=== PATIENT | male | born 1935 | race Caucasian/White ===

== ENCOUNTER → 2017-03-01 | Outpatient (CLI) | payer OTHER, MEDICARE | LOC: FIMAGING 08:51 | PROVIDERS: ATTEND Internal Medicine Cardiovascular Disease | DX: R06.02 Shortness of breath (principal); I47.1 Supraventricular tachycardia; Z79.899 Other long term (current) drug therapy; Z86.11 Personal history of tuberculosis ==

== ENCOUNTER → 2017-03-18 | Outpatient (CLI) | payer OTHER, MEDICARE | LOC: BHFA 09:15 | PROVIDERS: ATTEND Internal Medicine Cardiovascular Disease | DX: I42.9 Cardiomyopathy, unspecified (principal) ==

== ENCOUNTER → 2017-03-28 | Outpatient (CLI) | payer OTHER, MEDICARE ==
[~2017-03-28] MED LIST: IOPAMIDOL (ISOVUE 370) 100 ML BTL IV ONE
== END ==
LOC: FIMAGING 08:48
PROVIDERS: ATTEND Internal Medicine Cardiovascular Disease
DX: I71.2 Thoracic aortic aneurysm, without rupture (principal); R91.8 Other nonspecific abnormal finding of lung field; I77.4 Celiac artery compression syndrome; K80.20 Calculus of gallbladder without cholecystitis without obstruction; I48.92 Unspecified atrial flutter
CPT/HCPCS: 71275; Q9967

== ENCOUNTER 2017-04-20 14:55 | Inpatient (IN) | payer OTHER, MEDICARE ==
--- NOTE | 2017-04-20 15:13 | EDPHY ---
H & P Stated Complaint: Slurred speech HPI/ROS: CHIEF COMPLAINT: Fatigue, dizziness. HISTORY OF PRESENT ILLNESS: The patient is a 81-year-old male with a history of atrial fibrillation, CABG, pacemaker, and hypertension who presents with fatigue and dizziness. His reports that at 0400 this morning she noticed he was "shaking uncontrollably" and was visibly tachypneic. He slept much later than usual and woke up fatigued and dizzy and has been unable to walk without assistance because he feels off balance. No headache, no vertigo. His feels that his speech was slurred earlier. His symptoms are worsened with exertion and alleviated when lying flat. He is oriented to name, year, and place. He denies vomiting, diarrhea, abdominal pain, or change in his chronic back pain, recent sickness, or other complaints. His pacemaker was last checked 2-3 months ago. He is anticoagulated on Eliquis. REVIEW OF SYSTEMS: A ten point review of systems was performed and is negative with the exception of the items mentioned in the HPI. Source: Patient, Family Exam Limitations: No limitations - Personal History Tetanus Vaccine Date: 2003 - Medical/Surgical History Hx Asthma: No Hx Chronic Respiratory Disease: No Hx Diabetes: No Hx Cardiac Disease: Yes Hx Renal Disease: No Hx Cirrhosis: No Hx Alcoholism: No Hx HIV/AIDS: No Hx Splenectomy or Spleen Trauma: No Other PMH: 1. CABG. 2. AMI. 3. Pacemaker. 4. HTN. 5. CHRON HIP AND BACKPAIN. 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 2. Never smoked. 3. Drinks one glass of wine per week. 4. Lives with his . - Physical Exam Exam: General Appearance: Alert. Vital signs reviewed. Blood pressure 93/52 at triage. Eyes: Pupils equal and round, no conjunctival injection, no discharge. Anicteric. ENT, Mouth: Mucous membranes are dry, no oropharyngeal erythema or edema. Bilateral hearing aids in place. Neck: No lymphadenopathy, supple. Respiratory: Lungs are clear to auscultation; no wheezes, rales, or rhonchi. Cardiovascular: Regular rate and rhythm; no murmur, rub, or gallop. Gastrointestinal: Abdomen is soft and nontender, no masses or organomegaly, bowel sounds normal. Ventral hernia, no incarceration. Skin: Warm and dry, no rashes on exposed skin, normal color. Back: Nontender to palpation over the thoracolumbar spine. No CVAT. Extremities: No lower extremity edema, no calf tenderness or swelling. Neurological: Alert and oriented. Moving all four extremities easily and equally. Cranial nerves II through XII are examined and are intact with exception of mild tongue devaition to right (visual acuity not tested). Strength is 5 over 5 bilaterally with testing of all major motor groups. Sensation is intact to light touch over all 4 extremities. Deep tendon reflexes are 2+ in the biceps and knees bilaterally. Gait is normal. [id number] is performed accurately. Mild dysmetria with left heel to dawkins test. Right leg spasms when right leg held in the air. I do not appreciated dysarthria/slurred speech. Psychiatric: Normal affect. Constitutional: Initial Vital Signs Temperature (C) 36.7 C 04/20/17 15:00 Heart Rate 70 04/20/17 15:00 Respiratory Rate 18 04/20/17 15:00 Blood Pressure 93/52 L 04/20/17 15:00 O2 Sat (%) 91 L 04/20/17 15:00 O2 Delivery Mode Nasal Cannula O2 (L/minute) 1 Allergies/Adverse Reactions: No Known Allergies Allergy (Verified 05/23/15 12:12) Home Medications: Medication Instructions Recorded Atorvastatin Calcium [Lipitor 20 20 mg PO HS 02/01/12 mg (*)] Carvedilol [Coreg (*)] 25 mg PO BID 02/01/12 Multivitamins [Multivitamin (*)] 1 each PO HS 02/01/12 [place]-3 Fatty Acids [Fish Oil 1000 1,000 mg PO HS 02/01/12 mg (*)] Amiodarone HCl [Pacerone (*)] 100 mg PO HS 05/23/15 traMADol [Ultram 50 mg (*)] 50 mg PO BID PRN 05/23/15 Apixaban [Eliquis] 5 mg PO BID 04/20/17 Fiber [Fiber Diet] 2 each PO DAILY 04/20/17 Furosemide [Lasix 20 MG (*)] 20 mg PO SUTUTHSA 04/20/17 Gabapentin [Gabapentin] 300 mg PO HS 04/20/17 Lisinopril [Lisinopril] 10 mg PO HS 04/20/17 Spironolactone [Aldactone 25 MG 25 mg PO MWF 04/20/17 (*)] Niacin [Slo-Niacin] 250 mg PO DAILY 04/22/17 Medical Decision Making - Diagnostics EKG Interpretation: 12-LEAD EKG: Please see the full report in [facility]. My interpretation: A- V dual-paced rhythm. Imaging: Discussed imaging studies w/ call manager Radiologist ED Course/Re-evaluation: 81-year-old male presents with fatigue and dizziness that began early this morning. On exam he does have some difficulty with the heel to dawkins test with his left leg. He also has difficulty holding his right leg in the air. An IV was established and labs ordered. We will check a CT to rule out stroke or other intracranial process. Chest x-ray ordered to rule out pneumonia or other infectious process. I reviewed the patient's laboratory studies. Creatinine is 2.2 and BUN is 43, these levels represent decreased kidney function from previous. Troponin is elevated at 0.039. On re-exam his heel to dawkins dysmetria is improved. 1635: Head CT results conveyed to me by staff radiologist as no acute changes from previous. Stroke seems less likely, TIA remains a possible explanation. If concern for stroke remains he will need an MRI. He describes feeling off balance, not currently present, raising the possibility of posterior fossa event. I do not think that the shaking that is described was a seizure, but this is also in the differential. He is not experiencing vertigo. CXR also without acute changes--no infiltrate suggestive of pneumonia. He is not febrile or tachypneic and I doubt pneumonia. He has relative hypotension, but I have not found a source of infection (no urine obtained yet). Abdomen soft and nontender on exam. His 's description of last night's shaking event sounds like rigors. EKG shows paced rhythm. He is not reporting chest pain. Cardiac etiology still a possibility, but would not explain rigors. 1636: Reassessed patient. Discussed results of CT scan. Recommend admission for further evaluation and work-up. 1731: Consulted with Dr. Carrillo, hospitalist. She accepts admission. - Data Points Laboratory Results: Laboratory Results 04/20/17 15:22 04/20/17 15:22 Microbiology Results: MICROBIOLOGY 04/20/17 17:51 Blood Blood Culture - Preliminary Escherichia Coli 04/20/17 17:51 Blood Blood Panel (PCR) - Final Escherichia Coli 04/20/17 18:00 Blood Blood Culture - Preliminary Escherichia Coli Medications Given: Discontinued Medications Apixaban (Eliquis) 5 mg PO BID [facility] Stop: 10/17/17 21:44 Last Admin: 04/20/17 23:32 Dose: Not Given Sodium Chloride (Ns) 1,000 mls @ 0 mls/hr IV ONCE ONE PRN Reason: Wide Open Stop: 04/20/17 16:06 Last Admin: 04/20/17 16:09 Dose: 1,000 mls Niacin (Niacin) 250 mg PO DAILY MIGUEL Stop: 10/18/17 08:59 Last Admin: 04/22/17 09:30 Dose: 250 mg Departure - Departure Disposition: [facility] Inpatient Acute Clinical Impression: Weakness, Dizziness, Rigor Condition: Fair Report Scribed for: Zenaida Ontiveros Report Scribed by: Popeye Mancuso Date of Report: 04/20/17 Time of Report: 15:15 Physician Review and Approval Statement: 04/20/17 15:13 Portions of this note were transcribed by the medical nurse. I, Dr. Zenaida Ontiveros, personally performed the history, physical exam, and medical decision- making; and confirmed the accuracy of the information in the transcribed note.
--- NOTE | 2017-04-20 15:19 | CPEKG ---
Heart Rate: 70 RR Interval: 857 P-R Interval: 288 QRSD Interval: 170 QT Interval: 424 QTC Interval: 458 P [place]: 0 QRS [place]: -84 T Wave [place]: 109 EKG Severity - ABNORMAL ECG - EKG Impression: A-V DUAL-PACED COMPLEXES W/ SOME INHIBITION Electronically Signed By: Zenaida Ontiveros 21-Apr-2017 00:07:42
[2017-04-20 15:48] LABS: ADD MORPH? NO; ADD SCAN? YES; ATYPICAL LYMPHOCYTE FLAG 0 (0-99); FRAGMENT RBC FLAG 0 (0-99); HEMATOCRIT 38.4 % (40.0-51.0); HEMOGLOBIN 12.8 g/dL (13.7-17.5); LIPEMIA HEMOLYSIS FLAG 80 (0-99); MEAN CELL HEMOGLOBIN 32.2 pg (27.9-34.1); MEAN CELL HEMOGLOBIN CONCENTR. 33.3 g/dL (32.4-36.7); MEAN CELL VOLUME 96.5 fL (81.5-99.8); MEAN PLATELET VOLUME 9.2 fL (8.7-11.7); PLATELET CLUMPS FLAG 0 (0-99); PLATELET COUNT 156 10^3/uL (150-400); RED BLOOD CELL COUNT 3.98 10^6/uL (4.40-6.38); RED CELL DISTRIBUTION WIDTH 13.6 % (11.5-15.2)
[2017-04-20 15:49] LABS: LEFT SHIFT FLG 300 (0-99)
[2017-04-20 15:54] LABS: ANION GAP 14 mEq/L (8-16); CALCIUM 9.1 mg/dL (8.5-10.4); CARBON DIOXIDE 17 mEq/l (22-31); CHLORIDE 108 mEq/L (97-110); CREATININE 2.2 mg/dL (0.7-1.3); GLOMERULAR FILTRATION RATE 29; GLUCOSE 207 mg/dL (70-100); INR 1.79 (0.83-1.16); POTASSIUM 4.6 mEq/L (3.5-5.2); PROTIME(PATIENT) 20.9 SEC (12.0-15.0); SODIUM 139 mEq/L (134-144)
[2017-04-20 15:55] LABS: APTT 31.6 SEC (23.0-38.0)
[2017-04-20 16:05] LABS: TROPONIN I 0.039 ng/mL (0-0.034)
[2017-04-20] MEDS ORDERED: NS 1,000 ML IV ONE (16:05)
[2017-04-20 16:13] LABS: ADD DIFF? YES; SCAN POSITIVE
[2017-04-20 16:17] LABS: PLATELET ESTIMATE DECREASED (ADEQ)
[2017-04-20 19:16] LABS: COLOR AMBER; LEUKOCYTE ESTERASE,URINE NEGATIVE (NEGATIVE); NITRITE,URINE NEGATIVE (NEGATIVE)
[2017-04-20] MEDS ORDERED: ONDANSETRON 4 MG/2 ML VIAL IVP PRN (21:31)
[2017-04-20] MEDS ORDERED: ONDANSETRON DISINTEGRATING 4 MG TAB PO PRN (21:31)
[2017-04-20] MEDS ORDERED: traMADol 50 MG TAB PO PRN (21:34)
[2017-04-20] MEDS ORDERED: APIXABAN 5 MG TAB PO SCH (21:45)
[2017-04-20 22:02] LABS: ALBUMIN 3.3 g/dL (3.5-5.0); BILIRUBIN,TOTAL 2.8 mg/dL (0.1-1.4); BILIRUBIN-CONJUGATED 1.9 mg/dL (0.0-0.5); BILIRUBIN-UNCONJUGATED 0.9 mg/dL (0.0-1.1); TOTAL PROTEIN 5.9 g/dL (6.3-8.2)
[2017-04-20 22:14] LABS: TROPONIN I 0.043 ng/mL (0-0.034)
[2017-04-20] MEDS: NS 1,000 ML IV SCH (22:20)
[2017-04-20 22:26] LABS: PROCALCITONIN 14.83 ng/mL (0.02-0.10)
[2017-04-20] MEDS: ERTAPENEM 1 GM in NS 100 ML IV SCH (23:05)
--- NOTE | 2017-04-20 23:13 | GHP ---
[f rep st] HISTORY AND PHYSICAL DATE OF ADMISSION: 04/20/2017 CHIEF COMPLAINT: Rigors and fatigue. HISTORY OF PRESENT ILLNESS: The patient is a 81-year-old male with a history of coronary artery disease with prior CABG, atrial fibrillation, the presence of a pacemaker, and hypertension who presents to the emergency department reporting rigors and fatigue. He states he had some mild right upper quadrant discomfort last night. He took some Pepto-Bismol and was able to fall asleep. He then awoke with shaking rigors. His said she had to hug him in bed for nearly half an hour trying to warm him before his shaking chills stopped. He then fell asleep but she noted shallow breathing. He slept all morning today, and she had to wake him up at 1:30 in the afternoon. When he got up, he felt some dizziness or disequilibrium symptoms. He denies any known fevers. He has had no nausea, vomiting, or diarrhea. He denies any chest pain or shortness of breath. He does give a history of coughing in the setting of choking on liquids. He apparently had a significant aspiration episode last night where vomited some gastric contents, according to his daughter. He does endorse trouble swallowing recently. Aside from his episodes of swallowing difficulty and choking events. He denies ongoing cough or respiratory symptoms. With respect to his atrial fibrillation, he is anticoagulated on Eliquis. He has a pacemaker. Apparently during a recent interrogation, there were some concerning findings, and ablation was recommended. This is planned for next month. He has denied any heart palpitations or syncopal events. In the emergency department, he was given 1 L of normal saline, and due to his unexplained symptoms, he is admitted to the hospital for further evaluation. PAST MEDICAL HISTORY: 1. Coronary artery disease, status post CABG. 2. Atrial fibrillation, status post cardioversion July 2016. 3. Presence of a pacemaker with battery replacement July 2016. 4. Hypertension. 5. Chronic systolic heart failure with an ejection fraction of 35-40% on echocardiogram from July 2016. 6. 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 7. History of TIA. 8. Chronic hip and back pain. 9. Chronic continuous opioid dependence. PAST SURGICAL HISTORY: 1. Three-vessel CABG. 2. Pacemaker with AICD Biotronik. 3. Partial lung resection in 1957. FAMILY HISTORY: Positive for alcoholism in his father. SOCIAL HISTORY: Patient is a lifetime nonsmoker. He has had secondhand smoke exposure. He reports occasional alcohol use. He denies drug use. He is and lives independently with his . MEDICATIONS: Please see [facility] for completed outpatient medication list. ALLERGIES: No known drug allergies. REVIEW OF SYSTEMS: A 10-point review of systems was performed, and is negative except as per History of Present Illness. OBJECTIVE: VITAL SIGNS: Temperature is 36.7, blood pressure 98/65, heart rate 70 respiratory rate 20. He is 97% on 1 L. GENERAL: The patient is awake, alert, oriented, in no acute distress. HEENT: Head is atraumatic, normocephalic. Pupils equal, round, react to light. Extraocular is intact. Oropharynx is clear. Mucous membranes are moist. NECK: Supple. There is no JVD. HEART: Regular rate and rhythm without murmur. LUNGS: Faint crackles at the left base. ABDOMEN: Soft, protuberant. There is some mild right upper quadrant tenderness to palpation without rebound, rigidity, or guarding. Normoactive bowel sounds are present. EXTREMITIES: Without cyanosis, clubbing , or edema. Warm, well perfused. 2+ peripheral pulses. NEUROLOGIC: Grossly nonfocal. He moves all 4 extremities. He is mentating clearly. LABORATORY DATA: CBC reveals a white blood cell count of 15,000 with 69% segmented neutrophils, 19% bands. Basic metabolic panel was remarkable for CO2 of 17, BUN 43, creatinine 1.2. Blood glucose is 207. Troponin is mildly elevated at 0.039. Urinalysis is negative. LFTs are pending. Lactic acid is pending. Procalcitonin is pending. Head CT is negative for an acute hemorrhage, mass effect, or infarct. There is mild microvascular ischemic disease and mild to moderate age related atrophy. Chest x-ray performed in the emergency department shows no acute or new abnormality within the chest. There is stable mild to moderate cardiomegaly as well as some scarring in the right upper lobe and left lung base with a subtle nodule in the left base which was identified as a left lung mass by CT in March of 2017. There is no obvious consolidation or effusion. Pacemaker unit and leads are in stable position. EKG shows AV paced rhythm with some inhibition. ASSESSMENT AND PLAN: The patient is a 81-year-old male with multiple medical problems who presents to the emergency department with shaking rigors and fatigue. 1. Suspected cholangitis. He presents with rigors and leukocytosis with bandemia. A lactate and a procalcitonin are sent along with LFTs. I reviewed his chest CT from March of 2017, which noted mild common bile duct dilatation measuring 12 mm which was new from the previous study. If his LFTs are elevated will proceed with a right upper quadrant ultrasound to further assess for CBD dilatation. Blood cultures are sent. Will start Ertapenem. He received 1 L normal saline bolus in the ED. He is hemodynamically stable though his blood pressures are a bit on the low side. Will repeat a fluid bolus now. He did note taking an extra dose of his Coreg this afternoon. Will hold his other antihypertensive agents for now in the event he is developing sepsis. Case discussed with GI, who will see in am. Hold Eliquis in the event he requires ERCP. NPO after midnight. 2. Left lung mass. This appears suspicious by recent CT scan. PET-CT is recommended. Pt believes this is chronic and related to his prior TB infection. We may want to pursue this during this hospitalization, though will defer at this time and focus on stabilization of his infectious process first, which I do not think is related to this finding. 3. Coronary artery disease with a history of prior coronary artery bypass graft. He has been chest pain free. Will continue his outpatient medications with the exception of his Coreg which is held due to mild hypotension. 4. Atrial fibrillation. He is anticoagulated on Eliquis. Held for possible procedure as above. He is currently rate controlled. He apparently has an ablation planned. A cardiology consult is requested. He should likely have his pacemaker interrogated tomorrow to determine if he has any arrhythmias contributing to his fatigue and disequilibrium symptoms. 5. Hypotension. As above, his antihypertensives were held due to mild hypotension with systolic pressure in the 90s. 6. Acute kidney injury. It looks like he has chronic kidney disease with a baseline creatinine of around 1.3. I am holding his spironolactone and lisinopril for now. I am going to gently hydrate him overnight and recheck his labs in the morning. 7. Chronic systolic heart failure. He appears a bit on the dry side. Hold Lasix and gently hydrate overnight. Will repeat an echocardiogram. 8. Elevated troponin. This is very mild. Could be strain in the setting of infection. He is chest pain-free. Will go ahead and trend his troponins, and as above, cardiology consult is requested for the morning. 9. Dysphagia. Some concern for aspiration by history. No e/o infiltrate on imaging. Speech / swallow eval planned. 10. Deep venous thrombosis prophylaxis. He is anticoagulated on Eliquis, though this is held. SCD's ordered. 11. Code Status: Patient is full code. DISPOSITION: Patient admitted to inpatient status. Will likely require greater than 48 hours hospitalization for ongoing evaluation of a possible source of infection and further management of his cardiac issues. /[id number]/MODL MTDD
[2017-04-20] MEDS ORDERED: ATORVASTATIN CALCIUM 20 MG TAB PO SCH (23:30)
[2017-04-20] MEDS: OMEGA-3 FATTY ACIDS 1,000 MG CAP PO SCH (23:43)
[2017-04-20] MEDS: AMIODARONE HCL 200 MG TAB PO SCH (23:43)
[2017-04-20] MEDS: GABAPENTIN 300 MG CAP PO SCH (23:43)
[2017-04-21 04:46] LABS: % IMMATURE GRANULYOCYTES 0.9 % (0.0-1.1); ABSOLUTE IMMATURE GRANULOCYTES 0.11 10^3/uL (0.00-0.10); ADD DIFF? NO; ADD MORPH? NO; ADD SCAN? NO; ATYPICAL LYMPHOCYTE FLAG 0 (0-99); FRAGMENT RBC FLAG 0 (0-99); HEMATOCRIT 35.2 % (40.0-51.0); LEFT SHIFT FLG 70 (0-99); LIPEMIA HEMOLYSIS FLAG 90 (0-99); MEAN CELL HEMOGLOBIN 32.5 pg (27.9-34.1); MEAN CELL HEMOGLOBIN CONCENTR. 34.1 g/dL (32.4-36.7); MEAN CELL VOLUME 95.4 fL (81.5-99.8); MEAN PLATELET VOLUME 9.4 fL (8.7-11.7); PLATELET CLUMPS FLAG 10 (0-99); PLATELET COUNT 140 10^3/uL (150-400); RED BLOOD CELL COUNT 3.69 10^6/uL (4.40-6.38); RED CELL DISTRIBUTION WIDTH 13.7 % (11.5-15.2)
[2017-04-21 04:59] LABS: ALANINE AMINOTRANSFERASE 405 IU/L (21-72); ALBUMIN 3.1 g/dL (3.5-5.0); ALKALINE PHOSPHATASE 184 IU/L (38-126); ANION GAP 11 mEq/L (8-16); ASPARTATE AMINOTRANSFERASE 283 IU/L (17-59); BILIRUBIN,TOTAL 2.4 mg/dL (0.1-1.4); CALCIUM 8.5 mg/dL (8.5-10.4); CARBON DIOXIDE 17 mEq/l (22-31); CHLORIDE 111 mEq/L (97-110); CREATININE 1.9 mg/dL (0.7-1.3); GLOMERULAR FILTRATION RATE 34; GLUCOSE 103 mg/dL (70-100); POTASSIUM 4.2 mEq/L (3.5-5.2); SODIUM 139 mEq/L (134-144); TOTAL PROTEIN 5.5 g/dL (6.3-8.2)
[2017-04-21 05:09] LABS: TROPONIN I 0.039 ng/mL (0-0.034)
[2017-04-21 05:22] LABS: BILIRUBIN-CONJUGATED 1.7 mg/dL (0.0-0.5); BILIRUBIN-UNCONJUGATED 0.7 mg/dL (0.0-1.1)
--- NOTE | 2017-04-21 08:47 | PDCARPN ---
Cardiology Progress Note Chief Complaint: Weakness and fatigue. Chills and rigors Assessment/Plan: Assessment: Patient is a 81 y/o male, well known to [facility] (Dr. Tanvir Hernandez and Dr. Phani Russell), who presented yesterday with weakness and fatigue. 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 Work up suggestive of cholangitis, and GI has been consulted. Pending need for surgical intervention today. WBC with mild elevation. LFTs with moderate elevation. At present, the patient is feeling well. No active cardiovascular complaints of chest pains or pressure, no PND or orthopnea. No lower extremity edema. No dyspnea. No history of ICD shocks. Recent outpatient interrogation with ongoing atrial flutter (hence pending ablation). Plan: (1) Given the patient is paced, we will reprogram the device to turn off defibrillation, but maintain pacing - Pacer rep to reprogram device in am - do not use magnet in the patient given the pacing requirements noted (2) Continue limited hold on the Eliquis to minimize bleeding risk for pending surgical intervention - resume this therapy when acceptable to GI (3) Would continue therapy on Amiodarone to maintain some degree of heart rate reduction (4) Statins should be held with the elevation to LFTs noted (5) Patient is a moderate to high risk for the surgery given the past cardiovascular history. At present, there is good cardiovascular control of past medical/cardiovascular issues, and this leans the risk toward "moderate" rather than "high". (6) We will continue to follow this patient while in house Subjective: No cardiovascular complaints Reviewed/Discussed With: family, hospitalist, multidisciplinary team Objective: Vital Signs (8 Hrs) Temp Pulse Resp BP Pulse Ox 04/21/17 04:00 36.4 C 70 15 95/55 L 92 Intake/Output (24 Hrs) 04/20/17 04/21/17 04/22/17 05:59 05:59 05:59 Intake Total 250 Output Total 250 Balance 0 Intake: Oral (ml) 250 Output: Urine (ml) 250 Urinal 250 Other: Weight 90.2 kg Number of Voids Toilet 1 Result Diagrams: 04/21/17 04:21 04/21/17 04:21 Cardiac Labs: Cardiac Lab Results (72 Hrs) 04/21/17 04/20/17 04:21 21:40 Troponin I 0.039 H 0.043 H Telemetry: AV pacing - Physical Exam Constitutional: WDWN, healthy appearing Eyes: PERRL, EOMI Ears, Nose, Mouth, Throat: moist mucous membranes Cardiovascular: regular rate and rhythm, no rubs, no gallops, systolic murmur ( II/) Peripheral Pulses: 2+: dorsalis-pedis (R), dorsalis-pedis (L) Respiratory: clear to auscultate bilat, no crackles, no wheezes Gastrointestinal: no tenderness Skin: no rashes, no edema Musculoskeletal: no muscular tenderness Neurologic: AAOx3, CN II-XII grossly intact Psychiatric: cooperative, interactive, following commands ICD10 Worksheet Patient Problems: Problems Problem Status Onset Dizziness Acute Weakness Acute Acute systolic congestive heart failure Acute Atrial tachycardia Acute CAD (coronary artery disease) Acute
[2017-04-21] MEDS ORDERED: APIXABAN 5 MG TAB PO SCH (09:00)
[2017-04-21] MEDS: ERTAPENEM 1 GM in NS 100 ML IV SCH (09:27)
[2017-04-21] MEDS: NIACIN 500 MG TAB PO SCH (09:27)
[2017-04-21] MEDS ORDERED: GLUCAGON,HUMAN RECOMBINANT 1 MG VIAL ONE (09:51)
[2017-04-21] MEDS ORDERED: IOTHALAMATE MEG (CONRAY) 50 ML VIAL IV ONE (09:52)
--- NOTE | 2017-04-21 10:22 | PDANEPAE ---
ANE History of Present Illness 81 yo with RUQ pain ANE Past Medical History - Cardiovascular History Hx Hypertension: Yes Hx Arrhythmias: Yes Hx Coronary Artery / Peripheral Vascular Disease: Yes Cardiovascular History Comment: Previous CABG, EF 35%, Pacer with ICD, ICD off - Pulmonary History Hx Oxygen in Use at Home: No Hx Sleep Apnea: Yes Sleep Apnea Screening Result - Last Documented: Positive - Endocrine History Hx Diabetes: No - Neurological & Psychiatric Hx Hx Neurological and Psychiatric Disorders: Yes Neurological / Psychiatric History Comment: TIAs - Chronic Pain History Chronic Pain: Yes (Back and hip) ANE Review of Systems - Pacemaker Pacemaker Type: Permanent Pacer/Defib Date Pacemaker Last Checked: 05/23/15 ANE Patient History - Allergies Allergies/Adverse Reactions: No Known Allergies Allergy (Verified 05/23/15 12:12) - Home Medications Home medications: home medication list seen and reviewed Home Medications: Atorvastatin Calcium [Lipitor 20 mg (*)] 20 mg PO HS 02/01/12 [Last Taken 22:00] Carvedilol [Coreg (*)] 25 mg PO BID 02/01/12 [Last Taken 05/23/15 09:00] Multivitamins [Multivitamin (*)] 1 each PO HS 02/01/12 [Last Taken 05/22/15 22: 00] Niacin [Niacin 500 mg (*)] 250 mg PO DAILY 02/01/12 [Last Taken 05/22/15 22:00] [place]-3 Fatty Acids [Fish Oil 1000 mg (*)] 1,000 mg PO HS 02/01/12 [Last Taken 05/22/15 22:00] Amiodarone HCl [Pacerone (*)] 100 mg PO HS 05/23/15 [Last Taken 05/22/15 22:00] traMADol [Ultram 50 mg (*)] 50 mg PO BID PRN 05/23/15 [Last Taken 05/22/15] Apixaban [Eliquis] 5 mg PO BID 04/20/17 [Last Taken Unknown] Fiber [Fiber Diet] 2 each PO DAILY 04/20/17 [Last Taken Unknown] Furosemide [Lasix 20 MG (*)] 20 mg PO SUTUTHSA 04/20/17 [Last Taken Unknown] Gabapentin [Gabapentin] 300 mg PO HS 04/20/17 [Last Taken Unknown] Lisinopril [Lisinopril] 10 mg PO HS 04/20/17 [Last Taken Unknown] Spironolactone [Aldactone 25 MG (*)] 25 mg PO MWF 04/20/17 [Last Taken Unknown] - NPO status NPO Since - Liquids (Date): 04/21/17 NPO Since - Liquids (Time): 00:00 NPO Since - Solids (Date): 04/21/17 NPO Since - Solids (Time): 00:00 - Anes Hx Anes Hx: no prior problems - Smoking Hx Smoking Status: Never smoked ANE Labs/Vital Signs - Labs Result Diagrams: 04/21/17 04:21 04/21/17 04:21 - Vital Signs Blood Pressure: 107/63 Heart Rate: 70 Respiratory Rate: 18 O2 Sat (%): 93 Height: 177.8 cm Weight: 90.2 kg ANE Physical Exam - Airway Neck exam: FROM Mallampati Score: Class 2 - Pulmonary Pulmonary: no respiratory distress, clear to auscultation - ASA Status ASA Status: III ANE Anesthesia Plan Anesthesia Plan: general endotracheal anesthesia
[2017-04-21] MEDS ORDERED: fentaNYL 100 MCG/2 ML INJ ONE (10:33)
[2017-04-21] MEDS ORDERED: PROPOFOL 200 MG/20 ML VIAL ONE (10:33)
[2017-04-21] MEDS ORDERED: ROCURONIUM 50 MG/5 ML VIAL ONE (10:35)
[2017-04-21] MEDS ORDERED: PHENYLEPHRINE HCL 100 MCG/ML SYR ONE (10:46)
--- NOTE | 2017-04-21 11:14 | POSTOPPROG ---
Post Op Note Date of Operation: 04/21/17 Surgeon: Destin Grewal Anesthesiologist: Dr. Jarquin Anesthesia: GET(General Endotracheal) Pre-op Diagnosis: Ascending cholangitis Post-op Diagnosis: Choledocholithiasis Procedure: ERCP/shpinterotomy/stone extraction Inf/Abcess present in the surg proc area at time of surgery?: Yes Depth: Organ Space (Cholangitis) EBL: Minimal Complications: none
--- NOTE | 2017-04-21 11:15 | SOAPPROG ---
SOAP Progress Note Assessment/Plan: Assessment:Pt with signs and sx of ascending cholangitis, BC positive for E. coli. Will proceed to ERCP. Plan: 04/21/17 11:14 Objective: Vital Signs Temp Pulse Resp BP Pulse Ox 36.6 C 70 18 107/63 93 04/21/17 09:56 04/21/17 10:21 04/21/17 10:21 04/21/17 10:21 04/21/17 10:21 Laboratory Results 04/21/17 04:21 04/21/17 04:21 04/20/17 04/21/17 04/22/17 05:59 05:59 05:59 Intake Total 250 Output Total 250 250 Balance 0 -250 PT 20.9 SEC (12.0-15.0) H 04/20/17 15:22 INR 1.79 (0.83-1.16) H 04/20/17 15:22 ICD10 Worksheet Patient Problems: Problems Problem Status Onset Dizziness Acute Weakness Acute Acute systolic congestive heart failure Acute Atrial tachycardia Acute CAD (coronary artery disease) Acute
[2017-04-21] MEDS ORDERED: ONDANSETRON 4 MG/2 ML VIAL IVP PRN (11:31)
[2017-04-21] MEDS ORDERED: fentaNYL 100 MCG/2 ML INJ IVP PRN (11:31)
[2017-04-21] MEDS ORDERED: PROMETHAZINE HCL 25 MG/ML INJ IVP PRN (11:31)
[2017-04-21] MEDS ORDERED: NALOXONE HCL 0.4 MG/ML INJ IVP PRN (11:31)
--- NOTE | 2017-04-21 11:32 | POSTANESTH ---
Post Anesthetic Evaluation Cardiovascular Status: Normal, Stable Respiratory Status: Normal, Stable Level of Consciousness/Mental Status: Can Participate in Eval, Alert and Oriented Pain Control: Adequate, Prn Tx Ordered Nausea/Vomiting Control: Adequate, Prn Tx Ordered Complications Possibly Related to Anesthesia: None Noted
[2017-04-21] MEDS: NS 1,000 ML IV SCH (14:28)
--- NOTE | 2017-04-21 14:45 | GCON ---
[f rep st] CONSULTATION GASTROINTESTINAL CONSULTATION IMPRESSION: 1. Strongly suspect ascending cholangitis, given symptoms of right upper quadrant pain, shaking chi lls, elevated white count, elevated liver function tests, and imaging showing common bile duct. 2. Bacteremia with E coli, probably secondary to #1. RECOMMENDATIONS: Urgent ERCP is warranted. This will be set up as soon as we get cardiac clearance . HISTORY OF PRESENT ILLNESS: The patient is a 81-year-old male with significant cardiac history as n oted in the history and physical by the hospitalist. Patient has had some right upper quadrant pain and then woke with shaking rigors last night. Shallo w breathing. No fevers. Presented to the emergency room where he was noted to have leukocytosis an d elevated liver function tests. A CT scan performed last month for chest problems, revealed a mild ly dilated common duct at 12 mm, and gallstones in the gallbladder. Ultrasound last night confirmed the common bile duct dilation, but no obvious stones were noted. PAST MEDICAL HISTORY: 1. Significant for coronary artery disease. He has had a CABG. He also has implanted defibrillato r. 2. Atrial fibrillation. 3. Hypertension. 4. Congestive heart failure. The remainder of the peripheral history is as per the H and P. PHYSICAL EXAM: GENERAL: Reveals an obese male, in no acute distress. ABDOMEN: Soft and obese. There is tenderness in the right upper quadrant. No masses, rebound or guarding noted. IMAGING: As noted above. LABORATORIES: On admission white count 15.03, hemoglobin 12.8, platelets 156. INR 1.8. Total bili valdez 2.8, of which 1.9 is conjugated. AST 398, ALT 469, alk phos 192. In February of this year, total bili was 1.2, AST was 38, and ALT was 82. /[id number]/MODL
--- NOTE | 2017-04-21 15:02 | ECHO ---
[id number] + + [address] : : [place] [address] : : [phone] + + Adult Echocardiographic Report + --------+ :Name: GARRETT GRAVES JStudy Date: 04/21/2017 12:19 PM : : Hospital Admission Number: [id number] Locat ion: 220: :: 1935 Gender: Male Height: 70 in : :Age: 81 yrs Race: WH Weight: 194 l b : :Reason For Study: pre-syncope, fatigue : : BSA: 2.1 mete rs2 : :History: Pacer, systolic HF : + --------+ MMode/2D Measurements \T\ Calculations IVSd: 1.3 cm LVIDd: 5.9 cm FS: 10.9 % LVOT diam: 2.1 cm LVPWd: 1.1 cm LVIDs: 5.3 cm EDV(Teich): LVOT area: 175.8 ml 3.5 cm2 ESV(Teich): 134.7 ml EF(Teich): 23.4 % LVLd ap4: 7.5 cm SV(MOD-sp4): EDV(MOD-sp4): 18.0 ml 104.0 ml LVLs ap4: 8.1 cm ESV(MOD-sp4): 86.0 ml EF(MOD-sp4): 17.3 % Normal Measurement Values: + + :LVIDd (3.5-5.7cm) IVSd (0.6-1.1cm) LVPWd (0.6-1.1cm) Aortic Root (2.0-3.7cm)Left Atrium (1.5-4.0cm): :LV Vol(d) (76-115ml) LV Vol(s) (29-48ml) Ejec Fraction (50-65%)PV Buster (0.6- 1.2m/s) TV Buster (0.4-1.0m/s) : :MV E Buster (0.8-1.0m/s)MV A Buster (0.3-1.0m/s)LVOT Buster (0.7-1.2m/s) Asc Ao Buster ( 0.9-1.8m/s) : + + Doppler Measurements \T\ Calculations MV E max buster: Ao mean P.0 mmHg LV V1 max: SV(LVOT): 73.1 cm/sec Ao V2 mean: 58.7 cm/sec 35.5 ml MV dec time: 67.7 cm/sec LV V1 max P.22 sec Ao V2 VTI: 18.4 cm 1.4 mmHg JEM(I,D): 1.9 cm2 LV V1 mean P.67 mmHg LV V1 mean: 37.2 cm/sec LV V1 VTI: 10.0 cm PA V2 max: PI end-d buster: TR max buster: 65.8 cm/sec 75.3 cm/sec 214.5 cm/sec PA max P.7 mmHg TR max P.4 mmHg Left Ventricle The left ventricle is borderline dilated. There is mild concentric left ventricular hypertrophy. Ejection Fraction = 35%. Left ventricular systolic function is moderately reduced. Akinetic apex. Hypokinetic anterlateral. Septal motion is consistent with conduction abnormality. Right Ventricle The right ventricle is grossly normal size. There is a pacemaker lead in the right ventricle. The right ventricular systolic function is mildly reduced. Atria The left atrium is moderate to severely dilated. Right atrial size is normal. Mitral Valve The mitral valve is normal in structure and function. There is no mitral valve stenosis. There is mild to moderate mitral regurgitation. Tricuspid Valve Normal tricuspid valve. There is no tricuspid stenosis. There is moderate tricuspid regurgitation. Aortic Valve The aortic valve is not well visualized. Mild Aortic Valve Calcification. There is no aortic stenosis. Mild aortic regurgitation. Pulmonic Valve The pulmonic valve is not well visualized. trace to mild pulmonic valvular regurgitation. Great Vessels The aortic root is normal size. Pericardium/Pleural There is a fat pad seen. There is no pericardial effusion. Conclusion The left ventricle is borderline dilated. There is mild concentric left ventricular hypertrophy. Ejection Fraction = 35%. Left ventricular systolic function is moderately reduced. Akinetic apex. Hypokinetic anterlateral Septal motion is consistent with conduction abnormality. There is a pacemaker lead in the right ventricle. The right ventricular systolic function is mildly reduced. The left atrium is moderate to severely dilated. There is mild to moderate mitral regurgitation. There is moderate tricuspid regurgitation. The aortic valve is not well visualized. Mild Aortic Valve Calcification Mild aortic regurgitation. trace to mild pulmonic valvular regurgitation. Final Reading Physician: Damaris Hill signed on 04/21/2017 02:59 PM Ordering Physician: Luz Marina Carrillo Performed By: Ly Vernon
--- NOTE | 2017-04-21 15:09 | HOSPPROG ---
Hospitalist Progress Note Assessment/Plan: 81 yo M with hx of CAD, s/p CABG, a fib, presenting with rigors/generalized fatigue found to have elevated lfts and choledocholithiasis # choledocholithiasis/cholangitis: s/p ERCP, sphincterotomy and stone removal. Will continue to trend lfts. # sepsis: in setting of above as well as ecoli bacteremia, HD stable, started on ertapenem, holding antihypertensives given mild hypotension, lactate wnl # e coli bacteremia: in setting of above, sensitivities pending, will get repeat blood cultures in am and request ID to consult. Had echo on arrival that did not show any vegetation though does have valvular heart disease # acute encephalopathy: prior to admission with significant somnolence and difficulty maintaining alertness, head ct negative, largely resolved though still somnolent, due to sepsis # chronic systolic heart failure: EF of 35%, AICD in place, holding lasix, aldactone, carvedilol, lisinopril for now given mild hypotension and sepsis. Will resume when bp can tolerate # CAD: hx of CABG, no chest pain currently, meds as above being held, continue statin # a fib: continued on eliquis/amiodarone. ECG personally reviewed and notable for AV paced complexes # geraldine: on cpap chronically # IP status, high risk presenting issues requiring > 48 hours stay for eval/ mgmt of above Patient new to my care. Care plan reviewed with Dr. berry, Dr. Grewal, old records reviewed and summarized as above Subjective: no acute overnight events, feeling well today, went for ERCP and stone removal, a bit tired currently, tolerating food without issues, no fever or chills Objective: Vital Signs Temp Pulse Resp BP Pulse Ox 36.6 C 66 18 95/62 L 91 L 04/21/17 12:00 04/21/17 12:00 04/21/17 12:00 04/21/17 12:00 04/21/17 12:00 Laboratory Results 04/21/17 04:21 04/21/17 04:21 04/20/17 04/21/17 04/22/17 05:59 05:59 05:59 Intake Total 250 900 Output Total 250 400 Balance 0 500 PT 20.9 SEC (12.0-15.0) H 04/20/17 15:22 INR 1.79 (0.83-1.16) H 04/20/17 15:22 awake alert nad anicteric op clear rrr systolic murmur cta b soft nt nd no cce warm dry well perfused oriented appropriate ICD10 Worksheet Patient Problems: Problems Problem Status Onset CAD (coronary artery disease) Acute Acute systolic congestive heart failure Acute Atrial tachycardia Acute Weakness Acute Dizziness Acute
[2017-04-21] MEDS: AMIODARONE HCL 200 MG TAB PO SCH (19:34)
[2017-04-21] MEDS: GABAPENTIN 300 MG CAP PO SCH (19:34)
[2017-04-21] MEDS: OMEGA-3 FATTY ACIDS 1,000 MG CAP PO SCH (19:38)
[2017-04-21] MEDS ORDERED: GABAPENTIN 300 MG CAP PO SCH (21:00)
[2017-04-21] MEDS ORDERED: OMEGA-3 FATTY ACIDS 1,000 MG CAP PO SCH (21:00)
[2017-04-21] MEDS ORDERED: AMIODARONE HCL 200 MG TAB PO SCH (21:00)
[2017-04-21] MEDS ORDERED: ATORVASTATIN CALCIUM 20 MG TAB PO SCH (21:00)
--- NOTE | 2017-04-21 22:22 | GPN ---
[f rep st] PROCEDURE NOTE PROCEDURE: Endoscopic retrograde cholangiopancreatography with sphincterotomy and common bile duct clearance. INDICATION: The patient is a 81-year-old male admitted with signs and symptoms of ascending cholang itis and bacteremia with E coli. ERCP is being performed urgently to evaluate and treat. DESCRIPTION OF PROCEDURE: After cardiac clearance was obtained, the patient was brought to the endo scopy suite. He was intubated and placed in the swimmer's position. His initial ASA class was 3E. Video duodenoscope was introduced through the mouth, down the esophagus, into the stomach, past the pylorus and into the duodenum. These structures were grossly normal. The ampulla of Vater was identified; it appeared atraumatic. Using wire guidance, the common bile duct was cannulated and the cholangiogram revealed a solitary 1 cm stone, free floating, in the duct. A sphincterotomy was performed to approximately 11 mm. Using Seldinger technique, the sphincterotome was removed, and a 9-[address] d into the common bile duct. With multiple sweeps, the stone was pulled into the intestine. Post-sweep films showed no evidence of any filling defect. The pancreatic duct was not injected at any time. A minimal amount of bleeding at the sphincterotomy site was noted, and this had stopped at the end o f the procedure. At this point, instruments were removed. The patient tolerated procedure well, was returned to [facility] very room in stable condition. RECOMMENDATIONS: 1. The patient should be observed for any signs or symptoms of post ERCP pancreatitis. 2. The patient will require appropriate treatment for his bacteremia. 3. Eventually, the patient will need cholecystectomy to remove the source of the patient's common b ile duct stones. /[id number]/MODL
[2017-04-22 04:19] LABS: ALBUMIN 2.9 g/dL (3.5-5.0); BILIRUBIN-CONJUGATED 0.5 mg/dL (0.0-0.5); BILIRUBIN-UNCONJUGATED 0.5 mg/dL (0.0-1.1); TOTAL PROTEIN 5.5 g/dL (6.3-8.2)
[2017-04-22] MEDS: NS 1,000 ML IV SCH ×2 (06:04→23:35)
[2017-04-22] MEDS: NIACIN 500 MG TAB PO SCH (09:30)
[2017-04-22] MEDS: ERTAPENEM 1 GM in NS 100 ML IV SCH (09:30)
--- NOTE | 2017-04-22 10:46 | HOSPPROG ---
Hospitalist Progress Note Assessment/Plan: 81 yo M with hx of CAD, s/p CABG, a fib, presenting with rigors/generalized fatigue found to have elevated lfts and choledocholithiasis # choledocholithiasis/cholangitis: s/p ERCP, sphincterotomy and stone removal. LFTs continue to trend down. Does have mildly elevated lipase at 830 but no significant abdominal pain, mild post ERCP pancreatitis possible. # sepsis: in setting of above as well as ecoli bacteremia, HD stable, started on ertapenem, holding antihypertensives given mild hypotension, lactate wnl # e coli bacteremia: in setting of above, sensitivities pending, repeat cxs with ngtd. Appreciate ID input. # acute encephalopathy: resolved since admission, head ct negative, 2/2 sepsis # chronic systolic heart failure: EF of 35%, AICD in place, will resume lasix today given mild PND and mildly increased lower extremity swelling today. Continue to hold aldactone, carvedilol, lisinopril for now given mild hypotension and sepsis. Will resume when bp can tolerate. # CAD: hx of CABG, no chest pain currently, meds as above being held given ongoing hypotension, continue statin # a fib: continued on eliquis/amiodarone. ECG personally reviewed and notable for AV paced complexes # geraldine: on cpap chronically # IP status, high risk presenting issues requiring > 48 hours stay for eval/ mgmt of above Care plan reviewed with patients present at bedside. Care plan including lasix reviewed with ID. Subjective: no significant overnight events, patient notes feeling well other than having some mild sob/pnd overnight, no fever or chills, no chest pain or sob Objective: Vital Signs Temp Pulse Resp BP Pulse Ox 36.4 C 70 12 123/82 H 92 04/22/17 08:00 04/22/17 08:00 04/22/17 08:00 04/22/17 08:00 04/22/17 08:00 Laboratory Results 04/21/17 04:21 04/21/17 04:21 04/21/17 04/22/17 04/23/17 05:59 05:59 05:59 Intake Total 250 1925 Output Total 250 875 Balance 0 1050 PT 20.9 SEC (12.0-15.0) H 04/20/17 15:22 INR 1.79 (0.83-1.16) H 04/20/17 15:22 awake alert nad anicteric op clear rrr systolic murmur cta b soft nt nd no cce warm dry well perfused oriented appropriate ICD10 Worksheet Patient Problems: Problems Problem Status Onset Dizziness Acute Weakness Acute Acute systolic congestive heart failure Acute Atrial tachycardia Acute CAD (coronary artery disease) Acute
[2017-04-22] MEDS: FUROSEMIDE 20 MG TAB PO SCH (11:10)
[2017-04-22] MEDS: AMIODARONE HCL 200 MG TAB PO SCH (19:58)
[2017-04-22] MEDS: OMEGA-3 FATTY ACIDS 1,000 MG CAP PO SCH (19:58)
[2017-04-22] MEDS: GABAPENTIN 300 MG CAP PO SCH (19:58)
[2017-04-23 04:39] LABS: ANION GAP 11 mEq/L (8-16); CALCIUM 9.1 mg/dL (8.5-10.4); CARBON DIOXIDE 17 mEq/l (22-31); CHLORIDE 113 mEq/L (97-110); CREATININE 1.4 mg/dL (0.7-1.3); GLOMERULAR FILTRATION RATE 49; GLUCOSE 97 mg/dL (70-100); POTASSIUM 4.9 mEq/L (3.5-5.2); SODIUM 141 mEq/L (134-144)
[2017-04-23] MEDS: FUROSEMIDE 20 MG TAB PO SCH (07:58)
[2017-04-23] MEDS: ACETAMINOPHEN 325 MG TAB PO PRN (08:38)
[2017-04-23] MEDS ORDERED: NIACIN 250 MG PO SCH (09:00)
[2017-04-23] MEDS: ERTAPENEM 1 GM in NS 100 ML IV SCH (09:27)
--- NOTE | 2017-04-23 09:41 | GCON ---
[f rep st] CONSULTATION INPATIENT INFECTIOUS DISEASE CONSULTATION REFERRING PHYSICIAN: Marcos Burnham MD REASON FOR REFERRAL: E coli bacteremia. HISTORY OF PRESENT ILLNESS: Patient is a 81-year-old male, who was admitted to [facility] on 04/20/2017 with complaints of rigors and fatigue. The patient had some mild right upper elisa drant discomfort the night of admission. He fell asleep and awoke with the rigors. The patient had blood cultures drawn in the emergency room. Empiric ertapenem was begun. Blood cultures from the emergency room grew E coli. Sensitivities are pending. Patient was admitted to the cardiac unit. Currently, he is resting comfortably and remains on ertapenem monotherapy. He has not had a fever s khris admission. Today he states he feels somewhat better. No further recurrence of rigors. PAST MEDICAL HISTORY: 1. Coronary artery disease. 2. Atrial fibrillation. 3. Hypertension. 4. Systolic heart failure. 5. Tuberculosis. 6. Transient ischemic attack. PAST SURGICAL HISTORY: 1. Status post coronary artery bypass grafting. 2. Status post pacemaker placement. 3. Status post partial lung resection secondary to tuberculosis. ANTIBIOTICS: Ertapenem. ALLERGIES: The patient has no known drug allergies. SOCIAL HISTORY: The patient denies any tobacco use. He is . Occasional alcohol use. FAMILY HISTORY: Reviewed but noncontributory. REVIEW OF SYSTEMS: Other than that detailed above in the History of Present Illness, a comprehensiv e 10-system review is negative. PHYSICAL EXAMINATION: VITAL SIGNS: Temperature maximum is 36.8. Temp current is 36.4. Heart rate is 70. Respiratory rate is 14. Blood pressure is 121/78. GENERAL: The patient is a well-formed, well-nourished, elderly male in no acute distress. He is not toxic in appearance. He is alert and oriented x3. He has a pleasant demeanor. HEENT: Normocephalic for age. Atraumatic. No scleral icterus. No oral lesion or drainage from the nares. Eyes: Lids and conjunctivae within normal donahue its. Pupils equal and round bilaterally. NECK: Supple. No meningismus. LUNGS: Clear to auscult ation bilaterally with good effort. HEART: Regular rate and rhythm. No significant peripheral felicia ma. ABDOMEN: Soft, nontender. No masses. SKIN: Warm and dry to the touch. No rash or lesion no antonia. MUSCULOSKELETAL: No muscle belly tenderness noted. No joint line effusion or arthritis is se en. NEURO: Cranial nerves 2-12 seem to be intact. Peripheral sensation seems intact in extremitie s. LABORATORY DATA: Patient has a CBC dated 04/21/2017, shows a white blood cell count of 12.4, hemogl obin of 12.0, hematocrit of 35.2, platelet count of 140. Differential is slightly left-shifted with 76.2 segmented neutrophils. Serum chemistries on 04/22/2017, show AST of 125, ALT of 282. Lipase is 812. ASSESSMENT: Escherichia coli bacteremia probably secondary to ascending cholangitis complicated by an obstructing stone in the common bile duct. Patient had the common bile duct stone removed on . We will continue treating with ertapenem until sensitivity panel to the Escherichia coli r eturns. Suspect the patient will need 2 weeks of antibiotic treatment status post stone removal. PLAN: 1. Continue ertapenem for now. 2. Follow up on sensitivity panel for the E coli. 3. Follow up on repeat blood cultures drawn this morning, 04/22. /[id number]/MODL
--- NOTE | 2017-04-23 09:49 | PCMIDPN ---
Assessment/Plan: Assessment/Plan: 1. E. coli sepsis secondary to Choledocholithiasis/cholangitis: - s/p ERCP, sphincterotomy, stone removal.-04/21/17 -f/u blood cx from 04/22/17 ngtd at 24 hours - pansensitive isolate. -currently on invanz. Can likely change to oral levaquin at time of discharge to complete therapy - wbc and LFT trending down. Creatinine improved. - Recheck labs in Am. -Reviewed labs/cultures with patient, , family at bedside. -Tentative plan of care also reviewed at length. Meds invanz 1g daily- Subjective: Afebrile. Appetite just starting to return. Denies nausea. having bm's that are between loose and formed. feels bloated. denies sob. Less abd pain. Objective: Vital Signs Temp Pulse Resp BP Pulse Ox 36.6 C 70 15 127/81 H 91 L 04/23/17 08:00 04/23/17 08:00 04/23/17 08:00 04/23/17 08:00 04/23/17 08:00 Laboratory Results 04/21/17 04:21 04/23/17 04:09 04/22/17 04/23/17 04/24/17 05:59 05:59 05:59 Intake Total 1925 1300 Output Total 875 1125 Balance 1050 175 - Physical Exam General Appearance: alert, no apparent distress Respiratory: lungs clear Cardiac/Chest: regular rate, rhythm Extremities: No swelling Abdomen: normal bowel sounds, non-tender, soft, distended, No guarding, No rebound Skin: No erythema - Time Spent With Patient Time Spent with Patient: greater than 35 minutes Time Spent with Patient: Greater than 35 minutes spent on this patients care, greater than 50% of time spent counseling, educating, and coordinating care regarding the above mentioned plan. ICD10 Worksheet Patient Problems: Problems Problem Status Onset Dizziness Acute Rigor Acute Weakness Acute Acute systolic congestive heart failure Acute Atrial tachycardia Acute CAD (coronary artery disease) Acute
[2017-04-23] MEDS: TAMSULOSIN HCL 0.4 MG CAP PO SCH (15:37)
--- NOTE | 2017-04-23 15:57 | HOSPPROG ---
Hospitalist Progress Note Assessment/Plan: 81 yo M with hx of CAD, s/p CABG, a fib, presenting with rigors/generalized fatigue found to have elevated lfts and choledocholithiasis # choledocholithiasis/cholangitis: s/p ERCP, sphincterotomy and stone removal. LFTs continue to trend down. Does have mildly elevated lipase at 830 but no significant abdominal pain, mild post ERCP pancreatitis possible. # sepsis POA: in setting of above as well as ecoli bacteremia, HD stable, started on ertapenem, holding antihypertensives given mild hypotension, lactate wnl # e coli bacteremia: in setting of above, pansensitive isolate, repeat cxs with ngtd. Appreciate ID input. Can likely dc on oral levofloxacin in am. # acute encephalopathy: resolved since admission, head ct negative, 2/2 sepsis # chronic systolic heart failure: EF of 35%, AICD in place, continue lasix though is not particularly volume overloaded. Continue to hold aldactone, carvedilol, lisinopril for now given continued mild hypotension. Will resume likely tomorrow if bp is trending up # urinary retention: patient notes longstanding issues with fully emptying his bladder, feeling as though he has constant dribbling of urine etc. Notes he has been on "queenie-easy" in the past and that helped. Will start flomax and monitor, no e/o UTI on UA. # CAD: hx of CABG, no chest pain currently, meds as above being held given ongoing hypotension, continue statin # a fib: continued on eliquis/amiodarone. ECG personally reviewed and notable for AV paced complexes # geraldine: on cpap chronically # IP status, high risk presenting issues requiring > 48 hours stay for eval/ mgmt of above Subjective: no significant overnight events, patient is currently feeling well but notes that yesterday he had to urinate multiple times and felt as if he was never able to fully empty his bladder Objective: Vital Signs Temp Pulse Resp BP Pulse Ox 36.6 C 70 19 105/65 94 04/23/17 12:00 04/23/17 12:00 04/23/17 12:00 04/23/17 12:00 04/23/17 12:00 Laboratory Results 04/21/17 04:21 04/23/17 04:09 04/22/17 04/23/17 04/24/17 05:59 05:59 05:59 Intake Total 1925 1300 Output Total 875 1125 Balance 1050 175 PT 20.9 SEC (12.0-15.0) H 04/20/17 15:22 INR 1.79 (0.83-1.16) H 04/20/17 15:22 awake alert nad anicteric op clear rrr systolic murmur cta b soft nt nd no cce warm dry well perfused oriented appropriate ICD10 Worksheet Patient Problems: Problems Problem Status Onset Dizziness Acute Rigor Acute Weakness Acute Acute systolic congestive heart failure Acute Atrial tachycardia Acute CAD (coronary artery disease) Acute
[2017-04-23] MEDS: OMEGA-3 FATTY ACIDS 1,000 MG CAP PO SCH (21:32)
[2017-04-23] MEDS: AMIODARONE HCL 200 MG TAB PO SCH (21:32)
[2017-04-23] MEDS: GABAPENTIN 300 MG CAP PO SCH (21:33)
[2017-04-23] MEDS: NIACIN 500 MG PO SCH (21:35)
[2017-04-24 04:49] LABS: % IMMATURE GRANULYOCYTES 0.9 % (0.0-1.1); ABSOLUTE IMMATURE GRANULOCYTES 0.06 10^3/uL (0.00-0.10); ADD DIFF? NO; ADD MORPH? NO; ADD SCAN? NO; ATYPICAL LYMPHOCYTE FLAG 20 (0-99); FRAGMENT RBC FLAG 0 (0-99); HEMATOCRIT 38.2 % (40.0-51.0); HEMOGLOBIN 12.5 g/dL (13.7-17.5); LEFT SHIFT FLG 10 (0-99); LIPEMIA HEMOLYSIS FLAG 80 (0-99); MEAN CELL HEMOGLOBIN 31.2 pg (27.9-34.1); MEAN CELL HEMOGLOBIN CONCENTR. 32.7 g/dL (32.4-36.7); MEAN CELL VOLUME 95.3 fL (81.5-99.8); MEAN PLATELET VOLUME 9.6 fL (8.7-11.7); PLATELET CLUMPS FLAG 0 (0-99); PLATELET COUNT 156 10^3/uL (150-400); RED BLOOD CELL COUNT 4.01 10^6/uL (4.40-6.38); RED CELL DISTRIBUTION WIDTH 13.4 % (11.5-15.2)
[2017-04-24 05:00] LABS: ALANINE AMINOTRANSFERASE 155 IU/L (21-72); ALKALINE PHOSPHATASE 135 IU/L (38-126); ANION GAP 9 mEq/L (8-16); ASPARTATE AMINOTRANSFERASE 37 IU/L (17-59); CALCIUM 8.8 mg/dL (8.5-10.4); CARBON DIOXIDE 19 mEq/l (22-31); CHLORIDE 111 mEq/L (97-110); CREATININE 1.3 mg/dL (0.7-1.3); GLOMERULAR FILTRATION RATE 53; GLUCOSE 93 mg/dL (70-100); POTASSIUM 4.8 mEq/L (3.5-5.2); SODIUM 139 mEq/L (134-144); TOTAL PROTEIN 5.4 g/dL (6.3-8.2)
[2017-04-24] MEDS: TAMSULOSIN HCL 0.4 MG CAP PO SCH (08:01)
[2017-04-24] MEDS: FUROSEMIDE 20 MG TAB PO SCH (08:01)
[2017-04-24] MEDS: ERTAPENEM 1 GM in NS 100 ML IV SCH (09:02)
[2017-04-24] MEDS: CARVEDILOL 25 MG TAB PO SCH ×2 (12:42→21:46)
[2017-04-24] MEDS ORDERED: ENOXAPARIN 100 MG/ML SYR SC ONE (13:00)
--- NOTE | 2017-04-24 15:37 | PDCONSULT ---
Medical Assistant Internal Medicine Note: I was asked by Dr. Collazo to provide surgical consultation for e.coli sepsis due to choledocholithiasis. He is s/p ERCP + sphincterotomy by Dr. Grewal on . He feels better and has been tolerating a regular diet. He was unaware that he had gallstones prior to this hospitalization, though he was noted to have stones on a chest CT performed earlier this year. 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 FH: NC ROS: denies chest pain, SOB, syncope PE: pleasant well developed male in NAD Lungs: clear without rales/ronchi CVS: RRR chest: well healed sternotomy Abd: soft/+BS, no focal tenderness, no palpable masses, no HSM Imaging studies reviewed: ERCP: distal CBD stones Ultrasound: CBD 10 mm, gallbladder distention without wall thickening, stones not visualized CT chest: (03/28/17) 2 partially calcified stones in dependent portion of GB lab: INR 1.79 PT 20.9 (04/20) creat 1.3 BUN 32 K+ 4.8 Na+ 139 bili 1.0 AST 37 ALT 155 alk phos 135 lipase 493 wbc 6.5 Hgb 12.5 Hct 38.2 plat 156K Imp: 1.cholelithiasis/choledocholithiasis s/p ERCP 2. e.coli sepsis likely due to #1 3. CHF 4. mild elevation of lipase 5. mild elevation PT/INR 6. A-fib, chronic 7. anticoagulation with Eliquis held 04/21 8. remote hx Tb requiring lung resection 9. S/P CABG 10. renal insufficiency with initial creat 1.9-improving Rec: we discussed his condition in detail and I recommended lap cholecystectomy. We discussed the pathophysiology of cholelithiasis in detail as well as laparoscopic cholecystectomy, which is scheduled for tomorrow morning. A request has been placed for the [employer] automobile sales representative to see the patient prior to surgery to turn off his AICD temporarily for surgery. Vit K tonight with repeat PT/INR in AM.
--- NOTE | 2017-04-24 16:43 | PCMIDPN ---
Assessment/Plan: Assessment/Plan: * Sepsis due to E coli bacteremia associated with choledocholithiasis/ cholangitis: Patient is status post ERCP with sphincterotomy and stone removal with plans for laparoscopic cholecystectomy in a.m.. Continue ertapenem. Patient taking amiodarone which makes use of levofloxacin more challenging given potential for QT prolongation. Favor completion of therapy with ertapenem on 3 [place] via peripheral IV with plans for 10 days of therapy in total given that source control has been achieved (end date of 04/30/2017). 04/24/17 16:39 04/24/17 16:42 Subjective: Patient feels significantly better. No abdominal pain. Objective: Vital Signs Temp Pulse Resp BP Pulse Ox 36.3 C 70 17 108/76 94 04/24/17 15:46 04/24/17 15:46 04/24/17 15:46 04/24/17 15:46 04/24/17 15:46 Laboratory Results 04/24/17 04:15 04/24/17 04:15 04/23/17 04/24/17 04/25/17 05:59 05:59 05:59 Intake Total 1300 470 500 Output Total 1125 200 Balance 175 270 500 Ertapenem # 5 Blood cultures 04/22/2017 no growth - Physical Exam General Appearance: alert, no apparent distress EENT: No scleral icterus, No thrush Respiratory: lungs clear, No respiratory distress Abdomen: non-tender, No distended ICD10 Worksheet Patient Problems: Problems Problem Status Onset Dizziness Acute Rigor Acute Weakness Acute Acute systolic congestive heart failure Acute Atrial tachycardia Acute CAD (coronary artery disease) Acute
[2017-04-24] MEDS ORDERED: PHYTONADIONE 2.5 MG/2.5 ML ORAL UDL PO ONE (17:11)
--- NOTE | 2017-04-24 18:01 | HOSPPROG ---
Hospitalist Progress Note Assessment/Plan: * Cholangitis with severe sepsis (POA) - Ecoli bacteremia -s/p ERCP with sphincterotomy -IV invanz - will likely need to discharge with IV abx (no levaquin due to amiodarone) -needs lap robert - d/w Dr. 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 Objective: Vital Signs Temp Pulse Resp BP Pulse Ox 36.3 C 70 17 108/76 94 04/24/17 15:46 04/24/17 15:46 04/24/17 15:46 04/24/17 15:46 04/24/17 15:46 Laboratory Results 04/24/17 04:15 04/24/17 04:15 04/23/17 04/24/17 04/25/17 05:59 05:59 05:59 Intake Total 1300 470 500 Output Total 1125 200 Balance 175 270 500 PT 20.9 SEC (12.0-15.0) H 04/20/17 15:22 INR 1.79 (0.83-1.16) H 04/20/17 15:22 CTA chest reviewed - pulmonary nodule, no CT abd done - Physical Exam Constitutional: no apparent distress, appears nourished, not in pain Cardiovascular: regular rate and rhythym, no murmur, rub, or gallop Respiratory: no respiratory distress, no rales or rhonchi, clear to auscultation Gastrointestinal: normoactive bowel sounds, soft, non-tender abdomen, no palpable masses Skin: no rashes or abrasions, no fluctuance, no induration Neurologic: AAOx3, sensation intact bilaterally Psychiatric: interacting appropriately, not anxious, not encephalopathic, thought process linear ICD10 Worksheet Patient Problems: Problems Problem Status Onset Dizziness Acute Rigor Acute Weakness Acute Acute systolic congestive heart failure Acute Atrial tachycardia Acute CAD (coronary artery disease) Acute
[2017-04-24] MEDS: GABAPENTIN 300 MG CAP PO SCH (21:46)
[2017-04-24] MEDS: OMEGA-3 FATTY ACIDS 1,000 MG CAP PO SCH (21:46)
[2017-04-24] MEDS: AMIODARONE HCL 200 MG TAB PO SCH (21:47)
[2017-04-25 04:45] LABS: % IMMATURE GRANULYOCYTES 0.9 % (0.0-1.1); ABSOLUTE IMMATURE GRANULOCYTES 0.06 10^3/uL (0.00-0.10); ADD DIFF? NO; ADD MORPH? NO; ADD SCAN? NO; ATYPICAL LYMPHOCYTE FLAG 30 (0-99); FRAGMENT RBC FLAG 0 (0-99); HEMATOCRIT 36.7 % (40.0-51.0); HEMOGLOBIN 12.3 g/dL (13.7-17.5); LEFT SHIFT FLG 10 (0-99); LIPEMIA HEMOLYSIS FLAG 80 (0-99); MEAN CELL HEMOGLOBIN 31.6 pg (27.9-34.1); MEAN CELL HEMOGLOBIN CONCENTR. 33.5 g/dL (32.4-36.7); MEAN CELL VOLUME 94.3 fL (81.5-99.8); MEAN PLATELET VOLUME 9.5 fL (8.7-11.7); PLATELET CLUMPS FLAG 0 (0-99); PLATELET COUNT 157 10^3/uL (150-400); RED BLOOD CELL COUNT 3.89 10^6/uL (4.40-6.38); RED CELL DISTRIBUTION WIDTH 13.4 % (11.5-15.2)
[2017-04-25 04:54] LABS: INR 1.15 (0.83-1.16); PROTIME(PATIENT) 14.7 SEC (12.0-15.0)
[2017-04-25 04:57] LABS: ALANINE AMINOTRANSFERASE 125 IU/L (21-72); ALKALINE PHOSPHATASE 120 IU/L (38-126); ANION GAP 11 mEq/L (8-16); ASPARTATE AMINOTRANSFERASE 31 IU/L (17-59); BILIRUBIN,TOTAL 0.7 mg/dL (0.1-1.4); BILIRUBIN-CONJUGATED 0.4 mg/dL (0.0-0.5); BILIRUBIN-UNCONJUGATED 0.3 mg/dL (0.0-1.1); CALCIUM 8.8 mg/dL (8.5-10.4); CARBON DIOXIDE 19 mEq/l (22-31); CHLORIDE 111 mEq/L (97-110); CREATININE 1.3 mg/dL (0.7-1.3); GLOMERULAR FILTRATION RATE 53; GLUCOSE 88 mg/dL (70-100); POTASSIUM 4.6 mEq/L (3.5-5.2); SODIUM 141 mEq/L (134-144); TOTAL PROTEIN 5.5 g/dL (6.3-8.2)
[2017-04-25] MEDS ORDERED: BUPIVACAINE 0.25% 30 ML SDV ONE (06:38)
[2017-04-25] MEDS ORDERED: LR 1,000 ML IV ONE (06:42)
--- NOTE | 2017-04-25 07:18 | PDANEPAE ---
ANE History of Present Illness Gallstones ANE Past Medical History - Cardiovascular History Hx Hypertension: Yes Hx Arrhythmias: Yes Hx Coronary Artery / Peripheral Vascular Disease: Yes Cardiovascular History Comment: Previous CABG, EF 35%, Pacer with ICD, ICD off - Pulmonary History Hx Oxygen in Use at Home: No Hx Sleep Apnea: Yes Sleep Apnea Screening Result - Last Documented: Positive - Endocrine History Hx Diabetes: No - Neurological & Psychiatric Hx Hx Neurological and Psychiatric Disorders: Yes Neurological / Psychiatric History Comment: TIAs - Chronic Pain History Chronic Pain: Yes (Back and hip) ANE Review of Systems - Pacemaker Pacemaker Type: Permanent Pacer/Defib 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: [employer] Pacemaker Model: ITREVIA 7 DR-T Pacemaker Mode: DDDR Date Pacemaker Last Checked: 05/23/15 ANE Patient History - Allergies Allergies/Adverse Reactions: No Known Allergies Allergy (Verified 05/23/15 12:12) - Home Medications Home Medications: Atorvastatin Calcium [Lipitor 20 mg (*)] 20 mg PO HS 02/01/12 [Last Taken 22:00] Carvedilol [Coreg (*)] 25 mg PO BID 02/01/12 [Last Taken 05/23/15 09:00] Multivitamins [Multivitamin (*)] 1 each PO HS 02/01/12 [Last Taken 05/22/15 22: 00] [place]-3 Fatty Acids [Fish Oil 1000 mg (*)] 1,000 mg PO HS 02/01/12 [Last Taken 05/22/15 22:00] Amiodarone HCl [Pacerone (*)] 100 mg PO HS 05/23/15 [Last Taken 05/22/15 22:00] traMADol [Ultram 50 mg (*)] 50 mg PO BID PRN 05/23/15 [Last Taken 05/22/15] Apixaban [Eliquis] 5 mg PO BID 04/20/17 [Last Taken Unknown] Fiber [Fiber Diet] 2 each PO DAILY 04/20/17 [Last Taken Unknown] Furosemide [Lasix 20 MG (*)] 20 mg PO SUTUTHSA 04/20/17 [Last Taken Unknown] Gabapentin [Gabapentin] 300 mg PO HS 04/20/17 [Last Taken Unknown] Lisinopril [Lisinopril] 10 mg PO HS 04/20/17 [Last Taken Unknown] Spironolactone [Aldactone 25 MG (*)] 25 mg PO MWF 04/20/17 [Last Taken Unknown] Niacin [Slo-Niacin] 250 mg PO DAILY 04/22/17 [Last Taken Unknown] - NPO status NPO Since - Liquids (Date): 04/25/17 NPO Since - Liquids (Time): 00:00 NPO Since - Solids (Date): 04/25/17 NPO Since - Solids (Time): 00:00 - Smoking Hx Smoking Status: Never smoked ANE Labs/Vital Signs - Labs Result Diagrams: 04/25/17 04:23 04/25/17 04:23 - Vital Signs Blood Pressure: 113/72 Heart Rate: 70 Respiratory Rate: 14 O2 Sat (%): 94 Height: 177.8 cm Weight: 90.1 kg ANE Physical Exam - Airway Neck exam: FROM Mallampati Score: Class 2 Mouth exam: normal dental/mouth exam - Pulmonary Pulmonary: no respiratory distress - Cardiovascular Cardiovascular: regular rate and rhythym (Paced 100%) ANE Anesthesia Plan Anesthesia Plan: general endotracheal anesthesia
[2017-04-25] MEDS ORDERED: PROPOFOL 200 MG/20 ML VIAL ONE (07:30)
[2017-04-25] MEDS ORDERED: fentaNYL 100 MCG/2 ML INJ ONE (07:30)
[2017-04-25] MEDS: ERTAPENEM 1 GM in NS 100 ML IV SCH (08:09)
[2017-04-25] MEDS ORDERED: fentaNYL 100 MCG/2 ML INJ IVP PRN (08:19)
[2017-04-25] MEDS ORDERED: HYDROmorphONE/DILAUDID 1 MG/ML SYR IVP PRN (08:19)
[2017-04-25] MEDS ORDERED: ONDANSETRON 4 MG/2 ML VIAL IVP PRN (08:19)
[2017-04-25] MEDS ORDERED: PROMETHAZINE HCL 25 MG/ML INJ IVP PRN (08:19)
[2017-04-25] MEDS ORDERED: NALOXONE HCL 0.4 MG/ML INJ IVP PRN (08:19)
--- NOTE | 2017-04-25 09:03 | POSTOPPROG ---
Post Op Note Date of Operation: 04/25/17 Surgeon: Jose Connell (, FACS) Pbx Repairer: Isabela Link, PAS_3 Anesthesiologist: Yariel George MD Anesthesia: GET(General Endotracheal) Pre-op Diagnosis: cholelithiasis Post-op Diagnosis: chronic and subacute cholecystitis Indication: e. coli sepsis Inf/Abcess present in the surg proc area at time of surgery?: Yes Depth: Organ Space EBL: 50-100
--- NOTE | 2017-04-25 09:11 | POSTANESTH ---
Post Anesthetic Evaluation Cardiovascular Status: Normal, Stable (Rep called to turn defib on) Respiratory Status: Normal, Stable Level of Consciousness/Mental Status: Can Participate in Eval, Alert and Oriented Pain Control: Adequate, Prn Tx Ordered Nausea/Vomiting Control: Adequate, Prn Tx Ordered Complications Possibly Related to Anesthesia: None Noted
[2017-04-25] MEDS ORDERED: ENOXAPARIN 30 MG/0.3 ML SYR SC ONE (12:47)
[2017-04-25] MEDS: TAMSULOSIN HCL 0.4 MG CAP PO SCH (12:56)
[2017-04-25] MEDS: ACETAMINOPHEN 325 MG TAB PO PRN (12:56)
[2017-04-25] MEDS: CARVEDILOL 25 MG TAB PO SCH ×2 (12:56→20:18)
[2017-04-25] MEDS: FUROSEMIDE 20 MG TAB PO SCH (12:57)
--- NOTE | 2017-04-25 16:33 | HOSPPROG ---
Hospitalist Progress Note Assessment/Plan: * Cholangitis with severe sepsis (POA) - Ecoli bacteremia -s/p ERCP with sphincterotomy -IV invanz - will likely need to discharge with IV abx (no levaquin due to amiodarone) -s/p lap robert with Dr. 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 Subjective: Doing well post surgery Objective: Vital Signs Temp Pulse Resp BP Pulse Ox 36.6 C 73 20 141/87 H 95 04/25/17 13:03 04/25/17 14:00 04/25/17 14:00 04/25/17 14:00 04/25/17 14:00 Laboratory Results 04/25/17 04:23 04/25/17 04:23 04/24/17 04/25/17 04/26/17 05:59 05:59 05:59 Intake Total 106 528 0975 Output Total 200 445 Balance 270 725 605 PT 14.7 SEC (12.0-15.0) 04/25/17 04:23 INR 1.15 (0.83-1.16) 04/25/17 04:23 - Physical Exam Constitutional: no apparent distress, appears nourished, not in pain Cardiovascular: regular rate and rhythym, no murmur, rub, or gallop Respiratory: no respiratory distress, no rales or rhonchi, clear to auscultation Gastrointestinal: normoactive bowel sounds, soft, non-tender abdomen, no palpable masses Skin: no rashes or abrasions, no fluctuance, no induration Neurologic: AAOx3, sensation intact bilaterally Psychiatric: interacting appropriately, not anxious, not encephalopathic, thought process linear ICD10 Worksheet Patient Problems: Problems Problem Status Onset Dizziness Acute Rigor Acute Weakness Acute Acute systolic congestive heart failure Acute Atrial tachycardia Acute CAD (coronary artery disease) Acute
[2017-04-25] MEDS: NIACIN 500 MG PO SCH (16:38)
--- NOTE | 2017-04-25 17:14 | PCMIDPN ---
Assessment/Plan: Assessment: Sepsis secondary to E coli bacteremia felt to be due to impacted bile duct stone since removed by ERCP. Patient went to the OR today for laparoscopic cholecystectomy. He did well. He is resting comfortably after the procedure. Plan to continue ertapenem monotherapy for now but likely will switch to oral fluoroquinolones base therapy upon discharge. Plan: 1. Continue ertapenem monotherapy. 2. Once stable for discharge switch to oral Levaquin therapy 750 mg daily. Subjective: Patient resting in his hospital bed after laparoscopic cholecystectomy. by bedside. No new complaints or issues. Objective: Ertapenem # 6 Vital Signs Temp Pulse Resp BP Pulse Ox 36.6 C 73 20 141/87 H 95 04/25/17 13:03 04/25/17 14:00 04/25/17 14:00 04/25/17 14:00 04/25/17 14:00 Laboratory Results 04/25/17 04:23 04/25/17 04:23 04/24/17 04/25/17 04/26/17 05:59 05:59 05:59 Intake Total 647 607 1190 Output Total 200 445 Balance 270 725 605 - Physical Exam General Appearance: WD/WN, alert, no apparent distress ICD10 Worksheet Patient Problems: Problems Problem Status Onset Dizziness Acute Rigor Acute Weakness Acute Acute systolic congestive heart failure Acute Atrial tachycardia Acute CAD (coronary artery disease) Acute
[2017-04-25] MEDS: OMEGA-3 FATTY ACIDS 1,000 MG CAP PO SCH (20:17)
[2017-04-25] MEDS: AMIODARONE HCL 200 MG TAB PO SCH (20:17)
[2017-04-25] MEDS: GABAPENTIN 300 MG CAP PO SCH (20:18)
[2017-04-25] MEDS ORDERED: NIACIN 500 MG PO SCH (21:00)
[2017-04-26 04:52] VITALS: O2SAT 94
[2017-04-26] MEDS: ACETAMINOPHEN 325 MG TAB PO PRN (08:10)
[2017-04-26] MEDS: ERTAPENEM 1 GM in NS 100 ML IV SCH (08:10)
[2017-04-26] MEDS: FUROSEMIDE 20 MG TAB PO SCH (08:11)
[2017-04-26] MEDS: TAMSULOSIN HCL 0.4 MG CAP PO SCH (08:12)
[2017-04-26] MEDS: CARVEDILOL 25 MG TAB PO SCH (08:13)
[2017-04-26 08:18] VITALS: BP 114/70; PULSE 73; RESP 18; TEMP 98.4
--- NOTE | 2017-04-26 08:19 | SOAPPROG ---
SOAP Progress Note Assessment/Plan: Assessment: s/p lap robert doing well Plan: we discussed diet and activity/FU next week my office if discharged ABX per ID Thanks 04/26/17 08:18 Subjective: resting comfortably/tolerating diet Objective: Vital Signs Temp Pulse Resp BP Pulse Ox 36.4 C 68 19 98/51 L 94 04/25/17 23:15 04/26/17 04:00 04/25/17 23:15 04/25/17 23:20 04/26/17 04:00 Laboratory Results 04/25/17 04:23 04/25/17 04:23 04/25/17 04/26/17 04/27/17 05:59 05:59 05:59 Intake Total 725 2250 Output Total 595 Balance 725 1655 PT 14.7 SEC (12.0-15.0) 04/25/17 04:23 INR 1.15 (0.83-1.16) 04/25/17 04:23 Physical Exam - Physical Exam General Appearance: alert, no apparent distress Cardiac/Chest: regular rate, rhythm Abdomen: non-tender, soft, other (dressings dry) ICD10 Worksheet Patient Problems: Problems Problem Status Onset Dizziness Acute Rigor Acute Weakness Acute Acute systolic congestive heart failure Acute Atrial tachycardia Acute CAD (coronary artery disease) Acute
--- NOTE | 2017-04-26 12:06 | PCMIDPN ---
Assessment/Plan: 1. Sepsis secondary to E coli bacteremia from gallbladder source, status post laparoscopic cholecystectomy: Patient will require ertapenem for another 5 days, to complete therapy on . He will receive this through a peripheral IV on . We are unable to use a fluoroquinolone in the setting of concomitant amiodarone. Patient is happy with this plan. I do not feel that he necessarily needs follow-up with infectious diseases Following completion of treatment course. Subjective: In good spirits. Eager to go home. Objective: Ertapenem 1 g IV daily, stop date 05/01 Afebrile Vital Signs Temp Pulse Resp BP Pulse Ox 36.9 C 73 18 114/70 94 04/26/17 08:18 04/26/17 08:18 04/26/17 08:18 04/26/17 08:18 04/26/17 08:18 Laboratory Results 04/25/17 04:23 04/25/17 04:23 04/25/17 04/26/17 04/27/17 05:59 05:59 05:59 Intake Total 725 2250 Output Total 595 Balance 725 1655 repeat blood cultures have cleared - Physical Exam General Appearance: alert, no apparent distress Skin: No rash ICD10 Worksheet Patient Problems: Problems Problem Status Onset Dizziness Acute Rigor Acute Weakness Acute Acute systolic congestive heart failure Acute Atrial tachycardia Acute CAD (coronary artery disease) Acute
--- NOTE | 2017-04-26 13:08 | PDIAF ---
- Diagnosis Diagnosis: e. coli bacteremia Code Status: Full Code - Medication Management Discharge Medications: Medications to Continue on Transfer Atorvastatin Calcium [Lipitor 20 mg (*)] 20 mg PO HS 02/01/12 [Last Taken 22:00] Carvedilol [Coreg (*)] 25 mg PO BID 02/01/12 [Last Taken 05/23/15 09:00] Multivitamins [Multivitamin (*)] 1 each PO HS 02/01/12 [Last Taken 05/22/15 22: 00] [place]-3 Fatty Acids [Fish Oil 1000 mg (*)] 1,000 mg PO HS 02/01/12 [Last Taken 05/22/15 22:00] traMADol [Ultram 50 mg (*)] 50 mg PO BID PRN 05/23/15 [Last Taken 05/22/15] Apixaban [Eliquis] 5 mg PO BID 04/20/17 [Last Taken Unknown] Fiber [Fiber Diet] 2 each PO DAILY 04/20/17 [Last Taken Unknown] Furosemide [Lasix 20 MG (*)] 20 mg PO SUTUTHSA 04/20/17 [Last Taken Unknown] Gabapentin 300 mg PO HS 04/20/17 [Last Taken Unknown] Lisinopril 10 mg PO HS 04/20/17 [Last Taken Unknown] Spironolactone [Aldactone 25 MG (*)] 25 mg PO MWF 04/20/17 [Last Taken Unknown] Niacin [Slo-Niacin] 250 mg PO DAILY 04/22/17 [Last Taken Unknown] Amiodarone HCl [Pacerone (*)] 200 mg PO HS #30 tab 04/26/17 [Last Taken Unknown] Tamsulosin HCl [Flomax 0.4 MG (*)] 0.4 mg PO DAILY #30 cap 04/26/17 [Last Taken Unknown] Skilled Nursing Antibiotics: ertapenem 1g IV daily Concession Stand Attendant Antibiotic Stop Date: 04/30/17 Discharge Medications: Refer to the Discharge Home Medication list for PRN reason. PICC Care - Routine: N/A - Orders Services needed: Registered Nurse Diet Recommendation: low fat - Labs/Radiology Call or Fax Lab and Imaging Results to: Dr. Heron Miles - Follow Up Care Current Providers and Referrals: Hoerler,Jose D, MD [Primary Care Provider] - As per Instructions Jose Connell MD [Medical Doctor] -
--- NOTE | 2017-04-26 22:43 | GOP ---
[f rep st] OPERATIVE REPORT DATE OF OPERATION: 04/25/2017 SURGEON: Jose Connell MD, FACS SAP BPC DEVELOPER: CAMERON Rodriguez ANESTHESIA: General endotracheal. ANESTHESIOLOGIST: Reinaldo George MD PREOPERATIVE DIAGNOSIS: 1. Cholelithiasis. 2. Chronic cholecystitis. 3. Choledocholithiasis status post ERCP. 4. Escherichia coli sepsis. POSTOPERATIVE DIAGNOSIS: Acute and chronic cholecystitis. PROCEDURE PERFORMED: Laparoscopic cholecystectomy. FINDINGS: Acute and chronic cholecystitis with multiple gallstones. ESTIMATED BLOOD LOSS: 50 mL. DESCRIPTION OF PROCEDURE: After informed consent was obtained, the patient was brought to the operating room and placed under general anesthesia. The abdomen was prepped and draped in usual fashion. Before proceeding, a time-out and identification of the patient was performed. Marcaine 0.25% was used to infiltrate all incision sites. A longitudinal incision was made through the patient's umbilicus at the base and carried through the skin and subcutaneous tissues. A Veress needle was introduced into the peritoneal cavity with ventral traction applied to the abdominal wall with a penetrating towel clamp. Position of the needle was confirmed with saline infusion and a pneumoperitoneum established with CO2 gas to a pressure of 15 mmHg. The Veress needle was withdrawn and replaced with a 12 mm bladeless trocar. A 5 mm 30-degree scope was introduced and the peritoneal cavity was visualized. Additional 5 mm ports were placed in the subxiphoid position to the right of the falciform ligament in the right upper quadrant midclavicular line and right upper quadrant anterior axillary line. This allowed introduction of atraumatic grasping forceps, which were used to grasp the gallbladder by the fundus and elevate it cephalad lifting the liver edge. The infundibulum of the gallbladder was grasped and manipulated anteriorly and posteriorly to visualize the peritoneum surrounding the cystic duct. This was incised and dissected away from the cystic duct circumferentially with the Harmonic scalpel. The cystic artery was hemoclipped and divided with the Harmonic scalpel. The cystic duct having been isolated from the remaining structures of the triangle of [place] was doubly hemoclipped and divided. The gallbladder was then dissected away from the liver edge using the Harmonic scalpel with minimal bleeding. It was retrieved through the umbilical port site. Subhepatic space was irrigated. Hemostasis appeared secure upon completion of the procedure. The umbilical fascial defect was repaired with a transfascial closure needle and 0 Vicryl suture. Subcutaneous tissues were approximated with 3-0 Monocryl suture. The pneumoperitoneum was evacuated and the remaining ports were removed. Skin of all incisions was closed with 4-0 Monocryl suture in a subcuticular fashion followed by Mastisol, Steri-Strips, and sterile dressings. The patient was extubated and brought to the recovery room in satisfactory condition. Needle, sponge, and instrument count were correct. COMPLICATIONS: None. /[id number]/MODL MTDD
--- NOTE | 2017-04-27 06:04 | GDS ---
[f rep st] DISCHARGE SUMMARY DISCHARGE DIAGNOSES: 1. Cholangitis with severe sepsis present on admission. 2. Escherichia coli bacteremia. 3. Status post ERCP with sphincterotomy. 4. Status post laparoscopic cholecystectomy. 5. Chronic systolic congestive heart failure. Ejection fraction 35% with AICD. 6. Benign prostatic hypertrophy. 7. Coronary artery disease, status post CABG. 8. Atrial fibrillation. 9. Metabolic encephalopathy. 10. Ascending aortic aneurysm 4.8 cm. 11. Pulmonary nodule. HISTORY: The patient is a 81-year-old male, who presented with fatigue but did have very abnormal L FTs and was subsequently discovered to have cholangitis with severe sepsis. Blood cultures grew E c brice. He underwent ERCP with sphincterotomy and stone removal. He was placed on IV Invanz and had i mprovement. Once he clinically stabilized and LFTs normalized, Surgery was consulted and Dr. Ko aviles erformed a laparoscopic cholecystectomy prior to discharge. He is chronically on amiodarone, so [facility] was not an option for discharge, and he will complete 5 more days of IV Invanz through [facility] infusion [facility] here. Will resume all of his previous cardiac medications at the time of discharge. He was also started o n Flomax for some BPH and has had a good result, and that will continue post discharge. DISCHARGE MEDICATIONS: Please see computer record for full detailed list. New medication: 1. Invanz 1 g IV daily for 5 more days. 2. Flomax 0.4 mg p.o. daily. ADDITIONAL DISCHARGE INSTRUCTIONS: 1. Outpatient followup needed regarding pulmonary nodule and ascending aortic aneurysm. 2. Return to [facility] for 5 more days IV Invanz through peripheral IV. Greater than 30 minutes' time was spent arranging this discharge. Patient was seen and examined by me on the day of discharge. /[id number]/MODL
== END 2017-04-26 14:36 | disposition home or self-care (01) | DRG 853 ==
LOC: F2W 18:10 → OBSVTOIN 21:31
PROVIDERS: ADMIT Hospitalist; ATTEND Hospitalist
PROC: 0FC98ZZ Extirpation of Matter from Common Bile Duct, Via Natural or Artificial Opening Endoscopic (ICD-10-PCS; 2017-04-21)
PROC: 0FT44ZZ Resection of Gallbladder, Percutaneous Endoscopic Approach (ICD-10-PCS; principal; 2017-04-25 07:30)
DX: A41.51 Sepsis due to Escherichia coli [E. coli] (principal); G93.41 Metabolic encephalopathy; K80.11 Calculus of gallbladder with chronic cholecystitis with obstruction; N17.9 Acute kidney failure, unspecified; I11.0 Hypertensive heart disease with heart failure; I50.22 Chronic systolic (congestive) heart failure; R65.20 Severe sepsis without septic shock; N40.0 Benign prostatic hyperplasia without lower urinary tract symptoms; I25.10 Atherosclerotic heart disease of native coronary artery without angina pectoris; I48.91 Unspecified atrial fibrillation; I71.4 Abdominal aortic aneurysm, without rupture; R91.1 Solitary pulmonary nodule; Z79.01 Long term (current) use of anticoagulants; Z86.73 Personal history of transient ischemic attack (TIA), and cerebral infarction without residual deficits; Z95.1 Presence of aortocoronary bypass graft
CPT/HCPCS: 92610-GN; 92611-GN; 97161-GP; 97165-GO; 97530-GO; 97535-GO; G8978-GP-CI; G8979-GP-CI; G8987-GO-CJ; G8988-GO-CH; G8989-GO-CH; G8996-GN-CI; G8997-GN-CH; G8997-GN-CI; G8998-GN-CI; J1335; J1610; J1650; J2370; J2704; J3010; Q9961

== ENCOUNTER → 2017-05-23 | Outpatient (CLI) | payer OTHER, MEDICARE | LOC: BHFA 10:00 | PROVIDERS: ATTEND Internal Medicine Cardiovascular Disease | DX: I48.92 Unspecified atrial flutter (principal); R78.81 Bacteremia; I42.9 Cardiomyopathy, unspecified; G45.9 Transient cerebral ischemic attack, unspecified; Z95.810 Presence of automatic (implantable) cardiac defibrillator ==

== ENCOUNTER 2017-06-05 07:01 | Observation (INO) | payer OTHER, MEDICARE ==
[2017-06-05] MEDS ORDERED: NS 1,000 ML IV ONE (07:06)
--- NOTE | 2017-06-05 07:28 | CPEKG ---
Heart Rate: 70 RR Interval: 857 P-R Interval: 242 QRSD Interval: 180 QT Interval: 488 QTC Interval: 527 P [place]: 0 QRS [place]: -87 T Wave [place]: 100 EKG Severity - ABNORMAL ECG - EKG Impression: A-V DUAL-PACED RHYTHM WITH SOME INHIBITION Electronically Signed By: Gary Jones 05-Jun-2017 08:37:12
[2017-06-05] MEDS ORDERED: HEPARIN 10,000 UNIT/10 ML MDV ONE ×2 (07:30→09:31)
[2017-06-05] MEDS ORDERED: LIDOCAINE 1% 300 MG/30 ML SDV ONE (07:30)
[2017-06-05] MEDS ORDERED: BUPIVACAINE 0.5% 30 ML SDV ONE (07:31)
[2017-06-05] MEDS ORDERED: ISOPROTERENOL HCL/D5W 0.2 MG/50 ML BAG IV ONE (07:31)
[2017-06-05 07:45] LABS: % IMMATURE GRANULYOCYTES 0.1 % (0.0-1.1); ABSOLUTE IMMATURE GRANULOCYTES 0.01 10^3/uL (0.00-0.10); ADD DIFF? NO; ADD MORPH? NO; ADD SCAN? NO; ATYPICAL LYMPHOCYTE FLAG 10 (0-99); FRAGMENT RBC FLAG 0 (0-99); HEMATOCRIT 41.1 % (40.0-51.0); HEMOGLOBIN 13.8 g/dL (13.7-17.5); LEFT SHIFT FLG 0 (0-99); LIPEMIA HEMOLYSIS FLAG 80 (0-99); MEAN CELL HEMOGLOBIN 31.3 pg (27.9-34.1); MEAN CELL HEMOGLOBIN CONCENTR. 33.6 g/dL (32.4-36.7); MEAN CELL VOLUME 93.2 fL (81.5-99.8); MEAN PLATELET VOLUME 9.4 fL (8.7-11.7); PLATELET CLUMPS FLAG 20 (0-99); PLATELET COUNT 165 10^3/uL (150-400); RED BLOOD CELL COUNT 4.41 10^6/uL (4.40-6.38); RED CELL DISTRIBUTION WIDTH 13.8 % (11.5-15.2)
--- NOTE | 2017-06-05 07:46 | PDANEPAE ---
ANE History of Present Illness 81 yo EP study ablation ANE Past Medical History - Cardiovascular History Hx Hypertension: Yes Hx Arrhythmias: Yes Hx Coronary Artery / Peripheral Vascular Disease: Yes Cardiovascular History Comment: Previous CABG, EF 35%, Pacer with ICD, ICD off - Pulmonary History Hx Oxygen in Use at Home: No Hx Sleep Apnea: Yes - Endocrine History Hx Diabetes: No - Neurological & Psychiatric Hx Hx Neurological and Psychiatric Disorders: Yes Neurological / Psychiatric History Comment: TIAs - Chronic Pain History Chronic Pain: Yes (Back and hip) ANE Review of Systems - Exercise capacity METS (RN): 2 METS - Pacemaker Date Pacemaker Last Checked: 05/23/15 ANE Patient History - Allergies Allergies/Adverse Reactions: Sulfa (Sulfonamide Antibiotics) Allergy (Verified 04/25/17 17:36) Itching - Home Medications Home medications: home medication list seen and reviewed Home Medications: Atorvastatin Calcium [Lipitor 20 mg (*)] 20 mg PO HS 02/01/12 [Last Taken 22:00] Carvedilol [Coreg (*)] 25 mg PO BID 02/01/12 [Last Taken 05/23/15 09:00] Multivitamins [Multivitamin (*)] 1 each PO HS 02/01/12 [Last Taken 05/22/15 22: 00] [place]-3 Fatty Acids [Fish Oil 1000 mg (*)] 1,000 mg PO HS 02/01/12 [Last Taken 05/22/15 22:00] traMADol [Ultram 50 mg (*)] 50 mg PO BID PRN 05/23/15 [Last Taken 05/22/15] Apixaban [Eliquis] 5 mg PO BID 04/20/17 [Last Taken Unknown] Fiber [Fiber Diet] 2 each PO DAILY 04/20/17 [Last Taken Unknown] Furosemide [Lasix 20 MG (*)] 20 mg PO SUTUTHSA 04/20/17 [Last Taken Unknown] Gabapentin 300 mg PO HS 04/20/17 [Last Taken Unknown] Lisinopril 10 mg PO HS 04/20/17 [Last Taken Unknown] Spironolactone [Aldactone 25 MG (*)] 25 mg PO MWF 04/20/17 [Last Taken Unknown] Niacin [Slo-Niacin] 250 mg PO DAILY 04/22/17 [Last Taken Unknown] - NPO status NPO Status: no food or drink >8 hours - Anes Hx Anes Hx: no prior problems - Smoking Hx Smoking Status: Never smoked ANE Labs/Vital Signs - Labs Result Diagrams: 06/05/17 07:30 06/05/17 07:30 - Vital Signs Height: 5 ft 10.08 in Weight: 89.1 kg ANE Physical Exam - Airway Mouth exam: normal dental/mouth exam - Pulmonary Pulmonary: no respiratory distress - Cardiovascular Cardiovascular: regular rate and rhythym - ASA Status ASA Status: III ANE Anesthesia Plan Anesthesia Plan: general endotracheal anesthesia
[2017-06-05] MEDS ORDERED: REMIFENTANIL HCL 1 MG VIAL ONE (07:52)
[2017-06-05] MEDS ORDERED: fentaNYL 100 MCG/2 ML INJ ONE (07:52)
[2017-06-05] MEDS ORDERED: PROPOFOL/EMULSION 500 MG/50 ML BOTTLE IV ONE (07:52)
[2017-06-05 07:56] LABS: INR 1.22 (0.83-1.16); PROTIME(PATIENT) 15.4 SEC (12.0-15.0)
[2017-06-05 07:57] LABS: APTT 29.4 SEC (23.0-38.0)
[2017-06-05 08:02] LABS: ANION GAP 11 mEq/L (8-16); CALCIUM 9.1 mg/dL (8.5-10.4); CARBON DIOXIDE 21 mEq/l (22-31); CHLORIDE 110 mEq/L (97-110); CREATININE 1.6 mg/dL (0.7-1.3); GLOMERULAR FILTRATION RATE 42; GLUCOSE 96 mg/dL (70-100); MAGNESIUM 2.2 mg/dL (1.6-2.3); POTASSIUM 4.2 mEq/L (3.5-5.2); SODIUM 142 mEq/L (134-144)
--- NOTE | 2017-06-05 08:40 | PDHPUP ---
History & Physical Update H&P update statement: This history and physical update is based on an assessment of the patient which was completed after admission or registration (within 24 hours), but prior to the surgery/procedure. H&P update: H&P reviewed & patient examined, no change in patient's condition since H&P completed
[2017-06-05] MEDS ORDERED: PROTAMINE SULFATE 50 MG/5 ML VIAL IVP ONE (10:50)
[2017-06-05] MEDS ORDERED: OXYCODONE/APAP 5/325 TAB PO PRN (10:54)
[2017-06-05] MEDS ORDERED: ONDANSETRON 4 MG/2 ML VIAL IVP PRN (10:54)
[2017-06-05] MEDS ORDERED: ACETAMINOPHEN 325 MG TAB PO PRN (10:54)
[2017-06-05] MEDS ORDERED: traMADol 50 MG TAB PO PRN (10:57)
[2017-06-05] MEDS ORDERED: ATROPINE SULFATE 1 MG/10 ML SYR ONE (11:12)
--- NOTE | 2017-06-05 11:39 | CPEKG ---
Heart Rate: 71 RR Interval: 845 P-R Interval: 184 QRSD Interval: 202 QT Interval: 504 QTC Interval: 548 P [place]: 0 QRS [place]: -82 T Wave [place]: 102 EKG Severity - ABNORMAL ECG - EKG Impression: ATRIAL-VENTRICULAR DUAL-PACED COMPLEXES Electronically Signed By: Gary Jones 05-Jun-2017 11:49:16
--- NOTE | 2017-06-05 11:48 | POSTANESTH ---
Post Anesthetic Evaluation Cardiovascular Status: Normal, Stable Respiratory Status: Tx Decrease in SpO2 Level of Consciousness/Mental Status: Can Participate in Eval Pain Control: Adequate, Prn Tx Ordered Nausea/Vomiting Control: Adequate, Prn Tx Ordered Complications Possibly Related to Anesthesia: None Noted
[2017-06-05 12:52] LABS: ANION GAP 11 mEq/L (8-16); CALCIUM 9.4 mg/dL (8.5-10.4); CARBON DIOXIDE 21 mEq/l (22-31); CHLORIDE 111 mEq/L (97-110); CREATININE 1.5 mg/dL (0.7-1.3); GLOMERULAR FILTRATION RATE 45; GLUCOSE 98 mg/dL (70-100); MAGNESIUM 2.1 mg/dL (1.6-2.3); POTASSIUM 4.7 mEq/L (3.5-5.2); SODIUM 143 mEq/L (134-144)
--- NOTE | 2017-06-05 13:15 | EPPROC ---
Electrophysiology Procedure Note: ELECTROPHYSIOLOGIC STUDY AND CATHETER MEDIATED ABLATION FOR SUBEUSTACHIAN ISTHMUS DEPENDENT COUNTERCLOCKWISE ATRIAL FLUTTER: INDICATION: Recurrent atrial flutter PROCEDURES PERFORMED: 64614-41 EP evaluation with RA/RV/LA pace/record, with arrhythmia induction 91461-86 EP evaluation with RA/RV pace record, insert/reposition catheter, with arrhythmia induction 35782 SVT ablation 14433 3D mapping Fluoroscopy Catheters & Anesthesia: The patient arrived in the Electrophysiology Laboratory in the fasting state. The right clavicular region, right groin, and left groin area were prepped and draped in the usual sterile manner. Anesthesiologist Dr. Ness Kumar administered general anesthesia. Appropriate non-invasive blood pressure, pulse oximetry and end-tidal CO2 monitoring was established. All catheters were placed percutaneously using the modified Seldinger technique , and advanced into position under fluoroscopic guidance. One #7 Korean deflectable octapolar electrode catheter was advanced to the His-bundle position via the left femoral vein and then into CS. Halo catheter was placed along TV. Heparin was administered to keep ACT > 250 seconds. ADAMS was done which showed no LA or ROVERTO thrombus. There was complete AV block on pacemaker check today. Previously he has had pronounced first degree AV block. It was also noted that the atrial lead was undersensing his flutter waves even while programmed at a sensitivity of 0.2 mV. On arrival to the Electrophysiology Laboratory the patient was in Atrial flutter , CL 300 ms was easily induced by CS pacing. Entrainment mapping from lateral TA, septal TA, proximal CS and distal CS confirmed cavotricuspid isthmus dependent atrial flutter. Entire subeustachian isthmus had very low voltage atrial signals. Septal to lateral conduction time was 350 ms. In preparation for ablation of typical atrial flutter, a high-resolution 3D (3 dimensional) Carto electroanatomical map of the sub-Eustachian isthmus and right atrium was obtained during pacing of the posterolateral coronary sinus. For ablation of typical atrial flutter, one Agilis was placed in the right atrium. Cardiovresion was performed. A #8 Korean deflectable quadrapolar electrode catheter (2mm-5mm-2mm spacing) with 3.5 mm irrigated tip electrode and location sensor for the [employer] mapping system was inserted in the long sheath and advanced to the right atrium. Radiofrequency applications were applied between the tricuspid annulus at 0630 oclock as seen in the GAVI view and the inferior vena cava. This achieved conduction block across the isthmus. Septal to lateral conduction time post CT isthmus block was 475 ms. Atrial fibrillation and left AT were present post ablation. These were not targeted for ablation. the catheters were removed. Long sheath was changed to short 9Fr sheath. Protamine was administered. The patient was transferred to the cardiovascular holding area in stable condition. Vascular access sheaths were removed in the holding area. There were no apparent complications. CONCLUSIONS: 1. 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 2. Successful catheter mediated ablation of cavotricuspid isthmus achieving bi -directional conduction block across cavotricuspid isthmus. 3. Significant preexisting right atrial fibrosis and low voltage signals. 4. Preexisting complete AV block with 100% RV pacing. Patient may benefit from LV lead placement - discussed with patients bearing inspector Dr. René Hernandez and patient to see him in 2 weeks. 5. Undersensing on right atrial lead. 6. AFIB and left atrial tachycardias not targeted for ablation 7. No apparent complications. Patient Problems: Problems Problem Status Onset Atrial flutter Acute CAD (coronary artery disease) Acute Acute systolic congestive heart failure Acute Atrial tachycardia Acute Weakness Acute Dizziness Acute Rigor Acute
[2017-06-05] MEDS: APIXABAN 5 MG TAB PO SCH (20:17)
[2017-06-05] MEDS: CARVEDILOL 25 MG TAB PO SCH (20:18)
[2017-06-05] MEDS ORDERED: LISINOPRIL 10 MG TAB PO SCH (21:00)
[2017-06-05] MEDS ORDERED: GABAPENTIN 300 MG CAP PO SCH (21:00)
[2017-06-05] MEDS ORDERED: AMIODARONE HCL 200 MG TAB PO SCH (21:00)
[2017-06-05] MEDS ORDERED: ATORVASTATIN CALCIUM 20 MG TAB PO SCH (21:00)
[2017-06-06 05:18] LABS: % IMMATURE GRANULYOCYTES 0.3 % (0.0-1.1); ABSOLUTE IMMATURE GRANULOCYTES 0.04 10^3/uL (0.00-0.10); ADD DIFF? NO; ADD MORPH? NO; ADD SCAN? NO; ATYPICAL LYMPHOCYTE FLAG 0 (0-99); FRAGMENT RBC FLAG 0 (0-99); HEMATOCRIT 40.3 % (40.0-51.0); HEMOGLOBIN 13.5 g/dL (13.7-17.5); LEFT SHIFT FLG 20 (0-99); LIPEMIA HEMOLYSIS FLAG 80 (0-99); MEAN CELL HEMOGLOBIN 31.2 pg (27.9-34.1); MEAN CELL HEMOGLOBIN CONCENTR. 33.5 g/dL (32.4-36.7); MEAN CELL VOLUME 93.1 fL (81.5-99.8); MEAN PLATELET VOLUME 9.7 fL (8.7-11.7); PLATELET CLUMPS FLAG 0 (0-99); PLATELET COUNT 150 10^3/uL (150-400); RED BLOOD CELL COUNT 4.33 10^6/uL (4.40-6.38); RED CELL DISTRIBUTION WIDTH 13.7 % (11.5-15.2)
[2017-06-06 05:21] LABS: INR 1.36 (0.83-1.16); PROTIME(PATIENT) 16.8 SEC (12.0-15.0)
[2017-06-06 05:26] LABS: ANION GAP 11 mEq/L (8-16); CALCIUM 9.6 mg/dL (8.5-10.4); CARBON DIOXIDE 20 mEq/l (22-31); CHLORIDE 105 mEq/L (97-110); CREATININE 1.5 mg/dL (0.7-1.3); GLOMERULAR FILTRATION RATE 45; GLUCOSE 126 mg/dL (70-100); POTASSIUM 4.8 mEq/L (3.5-5.2); SODIUM 136 mEq/L (134-144)
[2017-06-06 05:38] LABS: CREATINE KINASE-MB FRACTION 2.87 ng/mL (0.00-3.19); TROPONIN I 0.174 ng/mL (0.000-0.034)
--- NOTE | 2017-06-06 08:59 | CPEKG ---
Heart Rate: 93 RR Interval: 645 P-R Interval: 262 QRSD Interval: 164 QT Interval: 460 QTC Interval: 573 P [place]: 0 QRS [place]: -85 T Wave [place]: 100 EKG Severity - ABNORMAL ECG - EKG Impression: A-V DUAL-PACED RHYTHM Electronically Signed By: Walter Russell 06-Jun-2017 08:59:50
[2017-06-06] MEDS ORDERED: TAMSULOSIN HCL 0.4 MG CAP PO SCH (09:00)
[2017-06-06] MEDS ORDERED: FUROSEMIDE 20 MG TAB PO SCH (09:00)
[2017-06-06] MEDS ORDERED: [UNRECOGNIZED DRUG - OTHER] PO SCH (09:00)
[2017-06-06] MEDS ORDERED: MULTIVITAMINS 1 EACH TAB PO SCH (09:00)
[2017-06-06] MEDS ORDERED: MULTIVITAMIN WITH MINERALS PO SCH (09:00)
[2017-06-06] MEDS: APIXABAN 5 MG TAB PO SCH (09:55)
[2017-06-06] MEDS: CARVEDILOL 25 MG TAB PO SCH (09:55)
[2017-06-06 11:51] VITALS: BP 90/60; PULSE 88; RESP 16; TEMP 97.5; O2SAT 91
--- NOTE | 2017-06-06 12:03 | ECHO ---
[id number] Preliminary + + [address] : : [place] [address] : : [phone] + + Adult Echocardiographic Report + --------+ :Name: PINACARINAGARRETT TIAN JStudy Date: 06/06/2017 09:11 AM : : Hospital Admission Number: [id number] Locat ion: 211: :: 1935 Gender: Male Height: 70 in : :Age: 81 yrs Weight: 196 l b : :Reason For Study: Eval LV Fx : : BSA: 2.1 mete rs2 : + --------+ MMode/2D Measurements \T\ Calculations IVSd: 1.2 cm LVIDd: 7.5 cm FS: 25.3 % MV Diam: 3.3 cm LVPWd: 1.5 cm LVIDs: 5.6 cm EDV(Teich): 294.8 ml ESV(Teich): 151.8 ml EF(Teich): 48.5 % Ao root diam: LVOT diam: 2.1 cmLVLd ap4: 7.8 cm SV(MOD-sp4): 3.8 cm LVOT area: EDV(MOD-sp4): 61.0 ml ACS: 2.0 cm 3.5 cm2 131.0 ml LVLs ap4: 7.8 cm ESV(MOD-sp4): 70.0 ml EF(MOD-sp4): 46.6 % Normal Measurement Values: + + :LVIDd (3.5-5.7cm) IVSd (0.6-1.1cm) LVPWd (0.6-1.1cm) Aortic Root (2.0-3.7cm)Left Atrium (1.5-4.0cm): :LV Vol(d) (76-115ml) LV Vol(s) (29-48ml) Ejec Fraction (50-65%)PV Buster (0.6- 1.2m/s) TV Buster (0.4-1.0m/s) : :MV E Buster (0.8-1.0m/s)MV A Buster (0.3-1.0m/s)LVOT Buster (0.7-1.2m/s) Asc Ao Buster ( 0.9-1.8m/s) : + + Doppler Measurements \T\ Calculations MV E max buster: MV V2 max: Ao mean PG: LV V1 mean P.4 cm/sec 118.2 cm/sec 3.2 mmHg 0.95 mmHg MV max P.6 mmHg Ao V2 mean: LV V1 mean: MV V2 mean: 82.9 cm/sec 43.6 cm/sec 67.2 cm/sec Ao V2 VTI: 21.6 cm LV V1 VTI: MV mean P.2 mmHgAVA(I,D): 2.5 cm2 15.4 cm MV V2 VTI: 25.3 cm MV area (1 diam): 8.6 cm2 MVA(VTI): 2.1 cm2 MV Flow area(1diam): 8.6 cm2 MR max buster: MR(RF 1 diam): 8.3 %SV(MV 1 diam): PA V2 max: 475.3 cm/sec 216.7 ml 71.9 cm/sec MR max PG: SI(MV 1 diam): PA max P.4 mmHg 104.7 ml/m2 2.1 mmHg SV(LVOT): 53.2 ml TR max buster: RF(MV,Ao)(1 diam): - 268.8 cm/sec 0.15 TR max PG: RF(MV,LVOT)(1diam): 28.9 mmHg 0.75 RAP systole: 5.0 mmHg RVSP(TR): 33.9 mmHg Left Ventricle The left ventricle is normal in size. There is normal left ventricular wall thickness. Ejection Fraction = 35-40%. There is left venticular dysschrony. There is Doppler evidence for diastolic dysfunction. There is apical hypokinesis. Right Ventricle There is a pacemaker lead in the right ventricle. Atria The left atrium is severely dilated. The right atrium is mild to moderately dilated. Mitral Valve There is mild mitral annular calcification. There is moderate mitral regurgitation. Tricuspid Valve Normal tricuspid valve. There is trace tricuspid regurgitation. Right ventricular systolic pressure is normal. Aortic Valve The aortic valve is trileaflet. The aortic valve opens well. There is no aortic stenosis. There is no aortic insufficiency. Pulmonic Valve The pulmonic valve is normal in structure and function. There is no pulmonic valvular regurgitation. Great Vessels The aortic root is normal size. Pericardium/Pleural There is no pericardial effusion. Conclusion A complete two-dimensional transthoracic echocardiogram was performed (2D, M-mode, Doppler and color flow Doppler). (1) Left ventricular systolic ejection fraction was moderately reduced (35%) - apical akinesis (2) No left ventricular hypertrophy (3) Diastolic dysfunction is present (4) Normal right ventricular size and function - pacer lead was present to the RV chamber (5) Severe dilation of the left atrium with mild to moderate right atrial dilation (6) Moderate mitral regurgitation (7) Trileaflet aortic valve without sclerosis or insufficiency (8) Physiologic tricuspid regurgitation - RVSP was within normal limits (9) Grossly normal pulmonic valve (10) In comparison to prior echocardiograms, no changes to the overall left ventricular systolic ejection fraction. Final Reading Physician: electronically signed on 06/06/2017 12:01 PM Ordering Physician: Walter Russell Performed By: Brandyn Fernandez, CS
--- NOTE | 2017-06-06 18:27 | GDS ---
[f rep st] DISCHARGE SUMMARY DISCHARGE DIAGNOSES: 1. Atrial flutter, status post atrial flutter ablation. 2. Paroxysmal atrial fibrillation and atrial tachycardia. 3. Ischemic cardiomyopathy. 4. Coronary artery bypass graft. 5. Dual chamber implantable cardioverter defibrillator. 6. Transient ischemic attack. 7. Ascending aortic aneurysm. 8. Hypertension. BRIEF HISTORY: The patient is a 81-year-old man with a history of atrial fibrillation and atrial flutter with a dual-chamber ICD. He had been experiencing increasing atrial arrhythmia burden since last July with symptoms of increased fatigue and decreased exercise tolerance. Since his P- waves are very low voltage, his atrial arrhythmias were noted to be under sensed on his ICD. His arrhythmia appeared to be mostly atrial flutter. He was taking amiodarone and continued to have atrial flutter. HOSPITAL COURSE: The patient underwent ablation of the cavotricuspid isthmus dependent counter-clockwise atrial flutter by Dr. Russell. This was successful. Of note, there was a significant amount of atrial fibrosis and low-voltage signals. He does have pre-existing complete heart block. Atrial fibrillation and left atrial tachycardia were seen during ablation. These were not targeted for ablation. He did undergo cardioversion on arrival to the EP lab due to atrial flutter. The patient complained of pain from a site on his back that the defibrillation pad had been on. This was noted to be very red and irritated. He did take 1 pain pill, but it did not help much during the night. He denies any kind of chest pain or shortness of breath. He reports he is feeling much better this morning. He feels like he has more energy, and he did not feel any palpitations. He denies any pain at his groin sites or in his legs. TESTING DONE: Echocardiogram : LV ejection fraction 35%. Left atrium was severely dilated. Right atrium has [id number] dilation. There was moderate MR and evidence of diastolic dysfunction. No pericardial effusion. EKG demonstrates AV pacing with brief atrial tachycardia. LABS: WBC 11.78, hemoglobin 13.5, hematocrit 30.3, platelets 150, PT 16.8, INR is 1.36, sodium is 136, potassium 4.8, chloride 105, bicarb 20, BUN 36, creatinine 1.5, glucose 126, CK 65, CK-MB 2.87. Troponin 0.174, this is elevated and to be expected post ablation. PHYSICAL EXAM: VITAL SIGNS: Blood pressure is 103/65, pulse is 78, respirations 14, temperature is 36.5, O2 saturation is 90% on room air. GENERAL : He is alert, and oriented, and sitting up in his chair. He is in no acute distress. CARDIAC: Irregular rhythm with a 1/6 systolic ejection murmur at the left sternal border. No rubs. LUNGS: Clear to auscultation. ABDOMEN: Soft and nontender. Groin sites are without bleeding or ecchymosis. EXTREMITIES: Warm. There is no discoloration, no edema, and bilateral +2 pedal pulses. BACK: There is a reddened area that is where the defibrillator patch was. It is moderartely red and irritated, there are no blisters. DISCHARGE MEDICATIONS: Please see discharge medication reconciliation. He will continue his current medications, including amiodarone 200 mg daily and Eliquis b.i.d. INSTRUCTIONS: He was instructed to put an ointment such as Gold Sánchez Intensive Healing on the burn from the defibrillator pad on his back. Post ablation activity restrictions were reviewed with the patient, and he was also given written instructions. FOLLOWUP: Dr. Hernandez on June 18 at 10:45 a.m. with a pacemaker check after that at 11:00 a.m. Follow up with Dr. Russell on June 26 at 2:45 p.m. /[id number]/MODL MTDD
== END 2017-06-06 13:47 | disposition home or self-care (01) ==
LOC: FCATH 07:01 → F2W 11:52
PROVIDERS: ADMIT Internal Medicine Cardiovascular Disease; ATTEND Internal Medicine Cardiovascular Disease
DX: I48.0 Paroxysmal atrial fibrillation (principal); I48.92 Unspecified atrial flutter; I42.9 Cardiomyopathy, unspecified; I71.2 Thoracic aortic aneurysm, without rupture; I25.2 Old myocardial infarction; I10 Essential (primary) hypertension; Z95.5 Presence of coronary angioplasty implant and graft; Z95.810 Presence of automatic (implantable) cardiac defibrillator; Z79.01 Long term (current) use of anticoagulants
CPT/HCPCS: 93005; 93306; 93613; 93621; 93653; C1731; C1732; C1766; J1644; J2704; J2720; J3010; J0461

== ENCOUNTER → 2017-06-26 | Outpatient (CLI) | payer OTHER, MEDICARE | LOC: FIMAGING 10:04 | PROVIDERS: ATTEND Physician Assistant Medical | DX: R35.1 Nocturia (principal); R35.0 Frequency of micturition; R79.89 Other specified abnormal findings of blood chemistry; N40.0 Benign prostatic hyperplasia without lower urinary tract symptoms ==

== ENCOUNTER 2018-04-16 05:58 | Day surgery (SDC) | payer OTHER, MEDICARE ==
[2018-04-16] MEDS ORDERED: LIDOCAINE 1% 2 ML INJ ID PRN (06:00)
[2018-04-16] MEDS ORDERED: LR 1,000 ML IV ONE (06:00)
[2018-04-16] MEDS ORDERED: BUPIVACAINE 0.25% 30 ML SDV ONE ×2 (06:46→07:09)
--- NOTE | 2018-04-16 07:02 | PDANEPAE ---
ANE History of Present Illness here for R elbow bursitis ANE Past Medical History - Cardiovascular History Hx Hypertension: Yes Hx Arrhythmias: Yes Hx Coronary Artery / Peripheral Vascular Disease: Yes Cardiovascular History Comment: Previous CABG, EF 35%, Pacer with ICD, ICD off - Pulmonary History Hx Oxygen in Use at Home: No Hx Sleep Apnea: Yes - Endocrine History Hx Diabetes: No - Neurological & Psychiatric Hx Hx Neurological and Psychiatric Disorders: Yes Neurological / Psychiatric History Comment: TIAs - Chronic Pain History Chronic Pain: Yes (Back and hip) ANE Review of Systems Review of systems is: negative Review of Systems: - Exercise capacity Exercise capacity: >=4 METS - Pacemaker Pacemaker Type: Permanent Pacer/Defib Date Pacemaker Last Checked: 05/23/15 ANE Patient History - Allergies Allergies/Adverse Reactions: Sulfa (Sulfonamide Antibiotics) Allergy (Verified 04/25/17 17:36) Itching sulfamethoxazole [From Bactrim] Allergy (Verified 06/05/17 08:03) trimethoprim [From Bactrim] Allergy (Verified 06/05/17 08:03) - Home Medications Home medications: home medication list seen and reviewed Home Medications: Atorvastatin Calcium [Lipitor 20 mg (*)] 20 mg PO HS 02/01/12 [Last Taken 22:00] Carvedilol [Coreg (*)] 25 mg PO BID 02/01/12 [Last Taken 04/16/18 06:00] Multivitamins [Multivitamin (*)] 1 each PO DAILY 02/01/12 [Last Taken 06/04/17] [place]-3 Fatty Acids [Fish Oil 1000 mg (*)] 1,000 mg PO DAILY 02/01/12 [Last Taken 04/15/18 08:00] traMADol [Ultram 50 mg (*)] 50 mg PO DAILY PRN 05/23/15 [Last Taken 04/14/18] Apixaban [Eliquis] 5 mg PO BID 04/20/17 [Last Taken 04/12/18 22:00] Furosemide [Lasix 20 MG (*)] 20 mg PO DAILY 04/20/17 [Last Taken 04/15/18 15:00] Acetaminophen [Tylenol 325mg (*)] 325 mg PO TID PRN 06/05/17 [Last Taken 22:00] Gabapentin [Neurontin 300 MG (*)] 300 mg PO HS 06/05/17 [Last Taken 04/15/18 22: 00] Lisinopril [Zestril 10 mg (*)] 10 mg PO HS 06/05/17 [Last Taken 04/16/18 05:00] Multivitamin with Minerals [Daily Vitamin Formula-Minerals] 1 each PO DAILY [Last Taken 04/15/18 08:00] - NPO status NPO Status: no food or drink >8 hours NPO Since - Liquids (Date): 04/15/18 NPO Since - Liquids (Time): 22:00 NPO Since - Solids (Date): 04/15/18 NPO Since - Solids (Time): 21:30 - Smoking Hx Smoking Status: Never smoked ANE Labs/Vital Signs - Vital Signs Vital Signs: reviewed preoperatively; see RN documention for details Blood Pressure: 103/71 Heart Rate: 70 Respiratory Rate: 16 O2 Sat (%): 95 ANE Physical Exam - Airway Neck exam: FROM Mallampati Score: Class 1 - Pulmonary Pulmonary: no respiratory distress - Cardiovascular Cardiovascular: regular rate and rhythym - ASA Status ASA Status: III ANE Anesthesia Plan Anesthesia Plan: GA w LMA
[2018-04-16] MEDS ORDERED: PROPOFOL/EMULSION 500 MG/50 ML BOTTLE IV ONE (07:10)
[2018-04-16] MEDS ORDERED: fentaNYL 100 MCG/2 ML INJ ONE (07:11)
[2018-04-16] MEDS ORDERED: CEFAZOLIN 2 GM/DEXTROSE/100 ML BAG IV ONE (07:14)
[2018-04-16] MEDS ORDERED: ceFAZolin 2 GM/DEXTROSE 100 ML IV ONE (07:17)
--- NOTE | 2018-04-16 07:17 | PDHPUP ---
History & Physical Update H&P update statement: This history and physical update is based on an assessment of the patient which was completed after admission or registration (within 24 hours), but prior to the surgery/procedure. H&P update: H&P reviewed & patient examined (no changes)
[2018-04-16] MEDS ORDERED: HYDROCODONE/APAP 5/325 TAB PO PRN (07:18)
[2018-04-16] MEDS ORDERED: ALBUTEROL 3 ML DEYVIAL IH PRN (07:19)
[2018-04-16] MEDS ORDERED: ONDANSETRON 4 MG/2 ML VIAL IVP PRN (07:19)
[2018-04-16] MEDS ORDERED: fentaNYL 100 MCG/2 ML INJ IVP PRN (07:19)
[2018-04-16] MEDS ORDERED: NALOXONE HCL 0.4 MG/ML INJ IVP PRN (07:19)
--- NOTE | 2018-04-16 08:11 | POSTOPPROG ---
Post Op Note Date of Operation: 04/16/18 Surgeon: [employer] Teacher: none Anesthesiologist: Ronny Angelo MD Anesthesia: GET(General Endotracheal) Pre-op Diagnosis: Right olecranon bursitis Post-op Diagnosis: same with bone spur Indication: swelling and pain Procedure: Olecranon bursectomy with bone spur excision Findings: bursitis Inf/Abcess present in the surg proc area at time of surgery?: No Depth: Deep Incisional (Fascial) EBL: Minimal Total fluids administered: 600cc Complications: none Specimen(s): tissue and fluid sent for culture
--- NOTE | 2018-04-16 08:47 | GOP ---
[f rep st] OPERATIVE REPORT DATE OF OPERATION: 04/16/2018 SURGEON: Gerardo Lambert MD PREOPERATIVE DIAGNOSIS: Right elbow olecranon bursitis. POSTOPERATIVE DIAGNOSIS: 1. Right elbow olecranon bursitis. 2. Olecranon bone spur. PROCEDURE PERFORMED: 1. Excision of olecranon bone spur. 2. Olecranon bursectomy. FINDINGS: INDICATIONS: This patient had longstanding swelling, some tenderness, and some erythema of the right olecranon bursa and it was felt that, at this point, excision was a good option for him. DESCRIPTION OF PROCEDURE: Under general anesthesia, the patient's right arm was prepped and draped i n the usual fashion and arm tourniquet applied at 250 mmHg. A C-shaped incision was made starting di stal and ending proximal to the olecranon bursa and swinging laterally. Skin flap was elevated from the underlying olecranon bursa toward the medial aspect with care taken to avoid the ulnar nerve, and then the olecranon bursa was elevated from the olecranon process and the distal triceps. The fluid in the bursa was cultured and the olecranon bursa itself also, that tissue was sent to Microbiology f or a tissue culture. The olecranon had a sharp bone prominence at its medial aspect and that was exc ised with a bone rongeur. The tip of the olecranon in the triceps area did not have a palpable bone spur. Once the olecranon was smoothed, then the skin flap was laid back in place. Horizontal mattre ss sutures of 4-0 PDS were used for skin closure and then the skin flap was tacked in 4 places so brittany t hematoma could not accumulate, and then a bulky, soft, pressure dressing was applied followed by fi berglass posterior splint, held in place with an Feroz bandage. He tolerated the procedure well. Ther e were no complications. Tourniquet deflation resulted in immediate pinking of the digits. He was b rought to the recovery area where detailed postoperative instructions were given prior to discharge. Prescriptions for [place] and Keflex were provided. After cultures were taken, 2 g of Ancef were give n intravenously intraoperatively. Follow up in the office in about 1 week postop for dressing and byrne ture removal, remobilization exercises, and a Heelbo pad for wound protection. /[id number]/MODL
[2018-04-16 11:09] VITALS: BP 93/70
--- NOTE | 2018-04-16 14:28 | POSTANESTH ---
Post Anesthetic Evaluation Cardiovascular Status: Normal, Stable Respiratory Status: Normal, Stable Level of Consciousness/Mental Status: Can Participate in Eval Pain Control: Adequate, Prn Tx Ordered Nausea/Vomiting Control: Adequate, Prn Tx Ordered Complications Possibly Related to Anesthesia: None Noted
== END 2018-04-16 11:20 | disposition home or self-care (01) ==
LOC: FSGY 05:58
PROVIDERS: ATTEND Specialist
PROC: 0MB Bursae and Ligaments, Excision (ICD-10-PCS; principal; 2018-04-16 07:15)
PROC: 0M933ZZ Drainage of Right Elbow Bursa and Ligament, Percutaneous Approach (ICD-10-PCS; principal; 2018-04-16 07:15)
DX: M70.21 Olecranon bursitis, right elbow (principal); M77.8 Other enthesopathies, not elsewhere classified; N18.9 Chronic kidney disease, unspecified; I12.9 Hypertensive chronic kidney disease with stage 1 through stage 4 chronic kidney disease, or unspecified chronic kidney disease; Z95.0 Presence of cardiac pacemaker; G47.33 Obstructive sleep apnea (adult) (pediatric)
CPT/HCPCS: J0690; J2704; J3010